=== PATIENT | female | born 1990 | race African-American/Black ===

== ENCOUNTER 2019-09-26 12:38 | Inpatient (IN) | payer MEDICAID, OTHER ==
[~2019-09-26] VITALS: Ht 157.5 cm; Wt 68.9 kg
[~2019-09-26 12:38] MED LIST: AMOX1TAB58 PO
[2019-09-26] MEDS ORDERED: IV NORMAL SALINE 1000ML BAG 1,000 ML IV SCH (12:42)
[2019-09-26] MEDS ORDERED: fentaNYL PF VIAL 100 MCG/2 ML VIAL IVP ONE (12:45)
--- NOTE | 2019-09-26 12:58 | PHYS DOC ---
Past Medical History Past Medical History: No Pertinent History Past Surgical History: Cholecystectomy, Smoking Status: Current Every Day Smoker Alcohol Use: Occasionally Drug Use: None General Adult EDM: Chief Complaint: ABDOMINAL PAIN HPI: HPI: Patient is a 28 year old female who presents with states epigastric abdominal pain 3 days that feels like " kicked in the stomach" with nausea and vomiting. She states that it will wrap around to her bilateral flanks. Patient denies dizziness, chest pain, shortness of air, syncope, dysuria, vaginal discharge, headache, fever, diarrhea. She states that she used to be a heavy drinker but for the last couple years she only drinks on special occasions. She states in the past that she has had "pancreas issues". She rates her pain a 9 out of 10. She has a history of UTI, smoker, alcoholism, cholecystectomy. Review of Systems: Review of Systems: Constitutional: Denies fever or chills. [] Eyes: Denies change in visual acuity. [] HENT: Denies nasal congestion or sore throat. [] Respiratory: Denies cough or shortness of breath. [] Cardiovascular: Denies chest pain or edema. [] GI: Epigastric abdominal pain, +nausea,+ vomiting, denies bloody stools or diarrhea. [] : Denies dysuria. [] Musculoskeletal: Bilateral flank back pain or joint pain. [] Integument: Denies rash. [] Neurologic: Denies headache, focal weakness or sensory changes. [] Endocrine: Denies polyuria or polydipsia. [] Lymphatic: Denies swollen glands. [] Psychiatric: Denies depression or anxiety. [] Heart Score: Risk Factors: Risk Factors: DM, Current or recent (<one month) smoker, HTN, HLP, family history of CAD, obesity. Risk Scores: Score 0 - 3: 2.5% MACE over next 6 weeks - Discharge Home Score 4 - 6: 20.3% MACE over next 6 weeks - Admit for Clinical Observation Score 7 - 10: 72.7% MACE over next 6 weeks - Early Invasive Strategies Current Medications: Current Medications Medications (Trade) Dose Ordered Sig/Marilyn Start Time Stop Time Status Last Admin Dose Admin Fentanyl Citrate (Fentanyl 2ml Vial) 50 mcg 1X ONCE 09/26/19 12:45 09/26/19 12:46 DC Sodium Chloride 1,000 ml @ 1,000 mls/hr Q1H 09/26/19 12:42 09/26/19 13:41 Allergies: Allergies: Allergies Coded Allergies Type Severity Reaction Last Updated Verified No Known Drug Allergies 06/22/17 No Physical Exam: PE: Constitutional: Well developed, well nourished, no acute distress, non-toxic appearance. [] HENT: Normocephalic, atraumatic, bilateral external ears normal, oropharynx moist, no oral exudates, nose normal. [] Eyes: PERRLA, EOMI, conjunctiva normal, no discharge. [] Neck: Normal range of motion, no tenderness, supple, no stridor. [] Cardiovascular:Heart rate regular rhythm, no murmur [] Lungs & Thorax: Bilateral breath sounds clear to auscultation [] Abdomen: Bowel sounds normal, soft, epigastric tenderness, no masses, no pulsatile masses. [] Skin: Warm, dry, no erythema, no rash. [] Back: No tenderness, no CVA tenderness. [] Extremities: No tenderness, no cyanosis, no clubbing, ROM intact, no edema. [] Neurologic: Alert and oriented X 3, normal motor function, normal sensory function, no focal deficits noted. [] Psychologic: Affect normal, judgement normal, mood normal. [] EKG: EKG: [] Radiology/Procedures: Radiology/Procedures: [] Impression: [facility] [address] [place], [place] [id number] IMAGING REPORT Signed PATIENT: JOSUE MICHEL MACCOUNT: [id number] : 1990 LOCATION: ER AGE: 28 SEX: F EXAM STATUS: REG ER ORD. PHYSICIAN: ALYSA SAMAYOA APRN REASON: abd pain PROCEDURE: CT ABD PELV W/ IV CONTRST ONLY Examination: CT of the abdomen pelvis with IV contrast HISTORY: History of abdominal pain COMPARISON: 06/22/2017 COMPARISON: None available TECHNIQUE: Axial CT images of the abdomen pelvis were performed with IV contrast and coronal sagittal reformats are performed Exposure: One or more of the following individualized dose reduction techniques were utilized for this examination: 1. Automated exposure control 2. Adjustment of the mA and/or kV according to patient size 3. Use of iterative reconstruction technique FINDINGS: The bibasilar lungs are clear. No evidence of free air identified in the abdomen. The liver, spleen, adrenals grossly appears unremarkable. Cholecystectomy clips identified. The stomach is mildly distended. The small bowel is nondilated. Feces and gas noted in the colon. Mild thickened appearance of the wall of the sigmoid colon. Urinary bladder is mildly distended. The bilateral kidneys enhance symmetrically. Punctate 2 mm calculus identified in the right kidney. Prominent appearing common bile duct. There is moderate fat stranding identified about the proximal pancreas with mild prominent pancreatic duct. No evidence of lytic or destructive lesion. IMPRESSION: 1. Moderate inflammatory fat stranding identified about the pancreas likely pancreatitis. Correlate with lab values. 2. Prominent appearing common bile duct and the pancreatic duct likely postcholecystectomy changes or distal common bile duct obstruction not completely excluded. Consider follow-up MRCP. 3. Mild thickened appearance of the wall of the sigmoid colon could be due to nondistention or mild colitis. 4. Punctate calculus right kidney. Electronically signed by: Silverio Milton MD (09/26/2019 2:00 PM) [id number] DICTATED and SIGNED BY: SILVERIO MILTON MD DATE: 09/26/191399 Course & Med Decision Making: Course & Med Decision Making Pertinent Labs and Imaging studies reviewed. (See chart for details) Patient states she took 2 Advil this morning. She states she got no relief from that. She is ambulatory with a steady gait. Alert and oriented. Speaks in full complete sentences. Skin pink warm and dry. Abdomen is soft but with epigastric tenderness with palpation. CVA tenderness bilaterally. Patient is positive for cocaine and opiates. She has a urinary tract infection with nitrites. I have given the patient Rocephin for her UTI in the ED. Patient continues to be in severe pain. I have spoken to Dr. Ruth for admission for pancreatitis. I will consult GI. [] Kvng Disclaimer: Kvng Disclaimer: This electronic medical record was generated, in whole or in part, using a voice recognition dictation system. Departure Departure Impression: Primary Impression: UTI (urinary tract infection) Qualified Codes: N39.0 - Urinary tract infection, site not specified; R31.9 - Hematuria, unspecified Additional Impression: Pancreatitis Qualified Codes: K85.90 - Acute pancreatitis without necrosis or infection, unspecified Disposition: 09 ADMITTED INPATIENT Admitting Physician: PARVEEN Condition: STABLE Referrals: NO PCP (PCP) Justicifation of Admission Dx: Justifications for Admission: Justification of Admission Dx: N/A Comments: UTI, PANCREATITIS ALYSA SAMAYOA HEALTH AND WELLNESS MANAGER Sep 26, 2019 12:57
[2019-09-26] MEDS ORDERED: ONDANSETRON PF 4 MG/2 ML VIAL. IVP ONE (13:00)
[2019-09-26 13:02] LABS: BILIRUBIN,URINE SMALL (NEG); CLARITY,URINE CLOUDY; COLOR,URINE AMBER; NITRITE,URINE POSITIVE (NEG); PROTEIN,URINE 100 mg/dL (NEG-TRACE)
[2019-09-26 13:08] LABS: BARBITURATES NEG (NEG); BENZODIAZEPINES NEG (NEG); CANNABINOIDS NEG (NEG); COCAINE POS (NEG); METHADONE NEG (NEG); OPIATES POS (NEG); PHENCYCLIDINE NEG (NEG)
[2019-09-26 13:09] LABS: AMPHETAMINE/METHAMPHETAMINE NEG (NEG)
[2019-09-26 13:10] LABS: HYALINE CASTS, URINE MODERATE /HPF; SQUAMOUS EPITHELIAL CELL,UR MOD /LPF
[2019-09-26 13:11] LABS: BACTERIA,URINE MANY /HPF (0-FEW); WBC,URINE >40 /HPF (0-4)
[2019-09-26] MEDS ORDERED: IOHEXOL 300 MG/ML 100ML VIAL. IV ONE (13:15)
[2019-09-26] MEDS ORDERED: CONTRAST GIVEN. MC PRN (13:15)
[2019-09-26 13:17] LABS: BASO # 0.1 x10^3/uL (0.0-0.2); BASO % 1 % (0-3); EOS # 0.2 x10^3/uL (0.0-0.7); EOS % 4 % (0-3); HEMATOCRIT 36.6 % (36.0-47.0); HEMOGLOBIN 12.7 g/dL (12.0-15.5); LYMPH # 1.1 x10^3/uL (1.0-4.8); LYMPH % 27 % (24-48); MEAN CORPUSCULAR HEMOGLOBIN 31 pg (25-35); MEAN CORPUSCULAR HGB CONC 35 g/dL (31-37); MEAN CORPUSCULAR VOLUME 88 fL (79-100); MONO # 0.5 x10^3/uL (0.0-1.1); MONO % 12 % (0-9); NEUT # 2.4 x10^3/uL (1.8-7.7); NEUT % 57 % (31-73); PLATELET COUNT 153 x10^3/uL (140-400); RED BLOOD COUNT 4.14 x10^6/uL (3.50-5.40); RED CELL DISTRIBUTION WIDTH 17.6 % (11.5-14.5); WHITE BLOOD COUNT 4.2 x10^3/uL (4.0-11.0)
[2019-09-26 13:25] LABS: CREATININE 1.6 mg/dL (0.6-1.0); GFR 45.8; POTASSIUM 3.1 mmol/L (3.5-5.1)
[2019-09-26 13:26] LABS: U PREG PATIENT NEGATIVE (NEG)
[2019-09-26 13:27] LABS: PROTHROMBIN TIME PATIENT 13.2 SEC (11.7-14.0)
[2019-09-26] MEDS ORDERED: cefTRIAXone IV Push 1 GM VIAL. IVP ONE (13:30)
[2019-09-26 13:31] LABS: ALBUMIN 4.5 g/dL (3.4-5.0); ALBUMIN/GLOBULIN RATIO 1.2 (1.0-1.7); TOTAL BILIRUBIN 1.2 mg/dL (0.2-1.0); TOTAL PROTEIN 8.4 g/dL (6.4-8.2)
--- NOTE | 2019-09-26 14:03 | RAD ---
Examination: CT of the abdomen pelvis with IV contrast HISTORY: History of abdominal pain COMPARISON: 06/22/2017 COMPARISON: None available TECHNIQUE: Axial CT images of the abdomen pelvis were performed with IV contrast and coronal sagittal reformats are performed Exposure: One or more of the following individualized dose reduction techniques were utilized for this examination: 1. Automated exposure control 2. Adjustment of the mA and/or kV according to patient size 3. Use of iterative reconstruction technique FINDINGS: The bibasilar lungs are clear. No evidence of free air identified in the abdomen. The liver, spleen, adrenals grossly appears unremarkable. Cholecystectomy clips identified. The stomach is mildly distended. The small bowel is nondilated. Feces and gas noted in the colon. Mild thickened appearance of the wall of the sigmoid colon. Urinary bladder is mildly distended. The bilateral kidneys enhance symmetrically. Punctate 2 mm calculus identified in the right kidney. Prominent appearing common bile duct. There is moderate fat stranding identified about the proximal pancreas with mild prominent pancreatic duct. No evidence of lytic or destructive lesion. IMPRESSION: 1. Moderate inflammatory fat stranding identified about the pancreas likely pancreatitis. Correlate with lab values. 2. Prominent appearing common bile duct and the pancreatic duct likely postcholecystectomy changes or distal common bile duct obstruction not completely excluded. Consider follow-up MRCP. 3. Mild thickened appearance of the wall of the sigmoid colon could be due to nondistention or mild colitis. 4. Punctate calculus right kidney. Electronically signed by: Silverio Milton MD (09/26/2019 2:00 PM) [id number]
[2019-09-26] MEDS ORDERED: IV NORMAL SALINE 1000ML BAG 1,000 ML IV ONE (14:15)
[2019-09-26] MEDS: fentaNYL PF VIAL 100 MCG/2 ML VIAL IV PRN ×3 (14:45→19:26)
[2019-09-26] MEDS ORDERED: ONDANSETRON PF 4 MG/2 ML VIAL. IV PRN ×2 (14:45→16:00)
--- NOTE | 2019-09-26 15:46 | PDOC1 ---
History and Physical Date of Admission Date of Admission DATE: 09/26/19 TIME: 15:45 Identification/Chief Complaint Chief Complaint 28 year old female who presents with states epigastric abdominal pain 3 days that feels like " kicked in the stomach" with nausea and vomiting. PAIN wraps around to her bilateral flanks. Patient denies dizziness, chest pain, shortness of air, syncope, dysuria, vaginal discharge, headache, fever, diarrhea. She states that she used to be a heavy drinker but now drinks a 1/2 bottle of wine a day She states in the past that she has had "pancreas issues". She rates her pain a 9 out of 10. She has a history of UTI, smoker, alcoholism, cholecystectomy. Past Medical History Past Medical History Past Medical History Past Medical History Past Medical History: No Pertinent History Past Surgical History: Cholecystectomy, Smoking Status: Current Every Day Smoker Alcohol Use: 1/2 bottle of wine a day Drug Use: cocaine FHX COPD Psych: Addictions Past Surgical History Past Surgical History: Cholecystectomy, Family History Family History: Alcohol Abuse, Other Social History Smoke: <1 pack per day ALCOHOL: heavy Drugs: None, Cocaine Current Problem List Problem List Problems Medical Problems: (1) Pancreatitis Status: Acute Current Medications Current Medications Current Medications Sodium Chloride 1,000 ml @ 1,000 mls/hr Q1H IV Last administered on 09/26/19at 13:29; Start 09/26/19 at 12:42; Stop 09/26/19 at 13:41; Status DC Fentanyl Citrate (Fentanyl 2ml Vial) 50 mcg 1X ONCE IVP Last administered on 09/26/19at 13:33; Start 09/26/19 at 12:45; Stop 09/26/19 at 12:46; Status DC Ondansetron HCl (Zofran) 4 mg 1X ONCE IVP Last administered on 09/26/19at 13:32; Start 09/26/19 at 13:00; Stop 09/26/19 at 13:01; Status DC Iohexol (Omnipaque 300 Mg/ml) 75 ml 1X ONCE IV Last administered on 09/26/19at 13:40; Start 09/26/19 at 13:15; Stop 09/26/19 at 13:16; Status DC Info (CONTRAST GIVEN -- Rx MONITORING) 1 each PRN DAILY PRN MC SEE COMMENTS; Start 09/26/19 at 13:15; Stop 09/28/19 at 13:14 Ceftriaxone Sodium (Rocephin) 1 gm 1X ONCE IVP Last administered on 09/26/19at 13:30; Start 09/26/19 at 13:30; Stop 09/26/19 at 13:31; Status DC Sodium Chloride 1,000 ml @ 1,000 mls/hr 1X ONCE IV Last administered on 09/26/19at 14:15; Start 09/26/19 at 14:15; Stop 09/26/19 at 15:14; Status DC Ondansetron HCl (Zofran) 4 mg PRN Q8HRS PRN IV NAUSEA/VOMITING; Start 09/26/19 at 14:45; Stop 09/27/19 at 14:44 Fentanyl Citrate (Fentanyl 2ml Vial) 50 mcg PRN Q1HR PRN IV PAIN Last administered on 09/26/19at 14:45; Start 09/26/19 at 14:45; Stop 09/27/19 at 14:44 Sodium Chloride 1,000 ml @ 150 mls/hr Q6H40M IV ; Start 09/26/19 at 14:34; Stop 09/27/19 at 14:33 Active Scripts Active Augmentin 500-125 Tablet (Amoxicillin/Potassium Clav) 1 Each Tablet 1 Tab PO BID 9 Days Allergies Allergies: Coded Allergies: No Known Drug Allergies (Unverified , 06/22/17) ROS Review of System Constitutional: Denies fever or chills. [] Eyes: Denies change in visual acuity. [] HENT: Denies nasal congestion or sore throat. [] Respiratory: Denies cough or shortness of breath. [] Cardiovascular: Denies chest pain or edema. [] GI: Epigastric abdominal pain, +nausea,+ vomiting, denies bloody stools or diarrhea. [] : Denies dysuria. [] Musculoskeletal: Bilateral flank back pain or joint pain. [] Integument: Denies rash. [] Neurologic: Denies headache, focal weakness or sensory changes. [] Endocrine: Denies polyuria or polydipsia. [] Lymphatic: Denies swollen glands. [] Psychiatric: Denies depression or anxiety. [] 14 PT ROS OTHERWISE NEG General: YES: Fatigue PSYCHOLOGICAL ROS: YES: Anxiety, Irritablity Eyes: No Blurry vision, No Decreased vision, No Double vision, No Dry eyes, No Excessive tearing, No Eye Pain, No Itchy Eyes, No Loss of vision, No Photophobia, No Scotomata, No Uses contacts, No Uses glasses, No Other ALLERGY AND IMMUNOLOGY: No: Hives, Insect Bite Sensitivity, Itchy/Watery Eyes, Nasal Congestion, Post Nasal Drip, Seasonal Allergies, Other Hematological and Lymphatic: No: Bleeding Problems, Blood Clots, Blood Transfusions, Brusing, Night Sweats, Pallor, Swollen Lymph Nodes, Other Respiratory: No: Cough, Hemoptysis, Orthopnea, Pleuritic Pain, Shortness of breath, SOB with excertion, Sputum Changes, Stridor, Tachypnea, Wheezing, Other Gastrointestinal: Yes Nausea, Yes Vomiting, Yes Abdominal Pain Musculoskeletal: No Gait Disturbance, No Joint Pain, No Joint Stiffness, No Joint Swelling, No Muscle Pain, No Muscular Weakness, No Pain In:, No Swelling In:, No Other Skin: No Dry Skin, No Eczema, No Hair Changes, No Lumps, No Mole Changes, No Mottling, No Nail Changes, No Pruritus, No Rash, No Skin Lesion Changes, No Other, No Acne Physical Exam Physical Exam Constitutional: Well developed, well nourished, no acute distress, non-toxic appearance. [] HENT: Normocephalic, atraumatic, bilateral external ears normal, oropharynx moist, no oral exudates, nose normal. [] Eyes: PERRLA, EOMI, conjunctiva normal, no discharge. [] Neck: Normal range of motion, no tenderness, supple, no stridor. [] Cardiovascular:Heart rate regular rhythm, no murmur [] Lungs & Thorax: Bilateral breath sounds clear to auscultation [] Abdomen: Bowel sounds normal, soft, epigastric tenderness, no masses, no pulsatile masses. [] Skin: Warm, dry, no erythema, no rash. [] Back: No tenderness, no CVA tenderness. [] Extremities: No tenderness, no cyanosis, no clubbing, ROM intact, no edema. [] Neurologic: Alert and oriented X 3, normal motor function, normal sensory function, no focal deficits noted. [] Psychologic: Affect normal, judgment POOR mood normal. [] General: Alert, Oriented X3, Cooperative, No acute distress HEENT: Atraumatic, PERRLA Lungs: Clear to auscultation Heart: S1S2, RRR Breasts: Not examined Abdomen: Normal bowel sounds, Soft Rectal Exam: not examined PELVIC: Examination not indicated Extremities: No cyanosis Skin: No breakdown Neuro: Normal speech, Cranial nerves 3-12 NL Vitals Vitals Vital Signs Date Time Temp Pulse Resp B/P (MAP) Pulse Ox O2 Delivery O2 Flow Rate FiO2 09/26/19 14:44 82 151/93 (112) 100 Room Air 09/26/19 13:00 97.8 16 97.8 Labs Labs Laboratory Tests Test 09/26/19 12:47 09/26/19 13:00 09/26/19 13:04 Urine Collection Type Unknown Urine Color Lydia Urine Clarity Cloudy Urine pH 6.0 (<5.0-8.0) Urine Specific [place] >=1.030 (1.000-1.030) Urine Protein 100 mg/dL (NEG-TRACE) Urine Glucose (UA) Negative mg/dL (NEG) Urine Ketones (Stick) Trace mg/dL (NEG) Urine Blood Trace (NEG) Urine Nitrite Positive (NEG) Urine Bilirubin Small (NEG) Urine Urobilinogen Dipstick 1.0 mg/dL (0.2 mg/dL) Urine Leukocyte Esterase Moderate (NEG) Urine RBC 3-5 /HPF (0-2) Urine WBC >40 /HPF (0-4) Urine Squamous Epithelial Cells Mod /LPF Urine Bacteria Many /HPF (0-FEW) Urine Hyaline Casts Moderate /HPF Urine Mucus Mod /LPF Urine Opiates Screen Pos (NEG) Urine Methadone Screen Neg (NEG) Urine Barbiturates Neg (NEG) Urine Phencyclidine Screen Neg (NEG) Urine Amphetamine/Methamphetamine Neg (NEG) Urine Benzodiazepines Screen Neg (NEG) Urine Cocaine Screen Pos (NEG) Urine Cannabinoids Screen Neg (NEG) Urine Ethyl Alcohol Neg (NEG) White Blood Count 4.2 x10^3/uL (4.0-11.0) Red Blood Count 4.14 x10^6/uL (3.50-5.40) Hemoglobin 12.7 g/dL (12.0-15.5) Hematocrit 36.6 % (36.0-47.0) Mean Corpuscular Volume 88 fL (79-100) Mean Corpuscular Hemoglobin 31 pg (25-35) Mean Corpuscular Hemoglobin Concent 35 g/dL (31-37) Red Cell Distribution Width 17.6 % (11.5-14.5) Platelet Count 153 x10^3/uL (140-400) Neutrophils (%) (Auto) 57 % (31-73) Lymphocytes (%) (Auto) 27 % (24-48) Monocytes (%) (Auto) 12 % (0-9) Eosinophils (%) (Auto) 4 % (0-3) Basophils (%) (Auto) 1 % (0-3) Neutrophils # (Auto) 2.4 x10^3/uL (1.8-7.7) Lymphocytes # (Auto) 1.1 x10^3/uL (1.0-4.8) Monocytes # (Auto) 0.5 x10^3/uL (0.0-1.1) Eosinophils # (Auto) 0.2 x10^3/uL (0.0-0.7) Basophils # (Auto) 0.1 x10^3/uL (0.0-0.2) Prothrombin Time 13.2 SEC (11.7-14.0) Prothromb Time International Ratio 1.0 (0.8-1.1) Sodium Level 136 mmol/L (136-145) Potassium Level 3.1 mmol/L (3.5-5.1) Chloride Level 100 mmol/L (98-107) Carbon Dioxide Level 23 mmol/L (21-32) Anion Gap 13 (6-14) Blood Urea Nitrogen 11 mg/dL (7-20) Creatinine 1.6 mg/dL (0.6-1.0) Estimated GFR (Cockcroft-Gault) 45.8 BUN/Creatinine Ratio 7 (6-20) Glucose Level 142 mg/dL (70-99) Calcium Level 9.0 mg/dL (8.5-10.1) Total Bilirubin 1.2 mg/dL (0.2-1.0) Aspartate Amino Transf (AST/SGOT) 34 U/L (15-37) Alanine Aminotransferase (ALT/SGPT) 23 U/L (14-59) Alkaline Phosphatase 87 U/L (46-116) Total Protein 8.4 g/dL (6.4-8.2) Albumin 4.5 g/dL (3.4-5.0) Albumin/Globulin Ratio 1.2 (1.0-1.7) Lipase 429 U/L (73-393) Ethyl Alcohol Level < 10 mg/dL (0-10) Urine Test Negative (NEG) Laboratory Tests Test 09/26/19 12:47 09/26/19 13:00 09/26/19 13:04 Urine Collection Type Unknown Urine Color Lydia Urine Clarity Cloudy Urine pH 6.0 (<5.0-8.0) Urine Specific [place] >=1.030 (1.000-1.030) Urine Protein 100 mg/dL (NEG-TRACE) Urine Glucose (UA) Negative mg/dL (NEG) Urine Ketones (Stick) Trace mg/dL (NEG) Urine Blood Trace (NEG) Urine Nitrite Positive (NEG) Urine Bilirubin Small (NEG) Urine Urobilinogen Dipstick 1.0 mg/dL (0.2 mg/dL) Urine Leukocyte Esterase Moderate (NEG) Urine RBC 3-5 /HPF (0-2) Urine WBC >40 /HPF (0-4) Urine Squamous Epithelial Cells Mod /LPF Urine Bacteria Many /HPF (0-FEW) Urine Hyaline Casts Moderate /HPF Urine Mucus Mod /LPF Urine Opiates Screen Pos (NEG) Urine Methadone Screen Neg (NEG) Urine Barbiturates Neg (NEG) Urine Phencyclidine Screen Neg (NEG) Urine Amphetamine/Methamphetamine Neg (NEG) Urine Benzodiazepines Screen Neg (NEG) Urine Cocaine Screen Pos (NEG) Urine Cannabinoids Screen Neg (NEG) Urine Ethyl Alcohol Neg (NEG) White Blood Count 4.2 x10^3/uL (4.0-11.0) Red Blood Count 4.14 x10^6/uL (3.50-5.40) Hemoglobin 12.7 g/dL (12.0-15.5) Hematocrit 36.6 % (36.0-47.0) Mean Corpuscular Volume 88 fL (79-100) Mean Corpuscular Hemoglobin 31 pg (25-35) Mean Corpuscular Hemoglobin Concent 35 g/dL (31-37) Red Cell Distribution Width 17.6 % (11.5-14.5) Platelet Count 153 x10^3/uL (140-400) Neutrophils (%) (Auto) 57 % (31-73) Lymphocytes (%) (Auto) 27 % (24-48) Monocytes (%) (Auto) 12 % (0-9) Eosinophils (%) (Auto) 4 % (0-3) Basophils (%) (Auto) 1 % (0-3) Neutrophils # (Auto) 2.4 x10^3/uL (1.8-7.7) Lymphocytes # (Auto) 1.1 x10^3/uL (1.0-4.8) Monocytes # (Auto) 0.5 x10^3/uL (0.0-1.1) Eosinophils # (Auto) 0.2 x10^3/uL (0.0-0.7) Basophils # (Auto) 0.1 x10^3/uL (0.0-0.2) Prothrombin Time 13.2 SEC (11.7-14.0) Prothromb Time International Ratio 1.0 (0.8-1.1) Sodium Level 136 mmol/L (136-145) Potassium Level 3.1 mmol/L (3.5-5.1) Chloride Level 100 mmol/L (98-107) Carbon Dioxide Level 23 mmol/L (21-32) Anion Gap 13 (6-14) Blood Urea Nitrogen 11 mg/dL (7-20) Creatinine 1.6 mg/dL (0.6-1.0) Estimated GFR (Cockcroft-Gault) 45.8 BUN/Creatinine Ratio 7 (6-20) Glucose Level 142 mg/dL (70-99) Calcium Level 9.0 mg/dL (8.5-10.1) Total Bilirubin 1.2 mg/dL (0.2-1.0) Aspartate Amino Transf (AST/SGOT) 34 U/L (15-37) Alanine Aminotransferase (ALT/SGPT) 23 U/L (14-59) Alkaline Phosphatase 87 U/L (46-116) Total Protein 8.4 g/dL (6.4-8.2) Albumin 4.5 g/dL (3.4-5.0) Albumin/Globulin Ratio 1.2 (1.0-1.7) Lipase 429 U/L (73-393) Ethyl Alcohol Level < 10 mg/dL (0-10) Urine Test Negative (NEG) Images Images PATIENT: JOSUE MICHEL MACCOUNT: [id number] : 1990 LOCATION: ER AGE: 28 SEX: F EXAM STATUS: REG ER ORD. PHYSICIAN: ALYSA SAMAYOA APRN REASON: abd pain PROCEDURE: CT ABD PELV W/ IV CONTRST ONLY Examination: CT of the abdomen pelvis with IV contrast HISTORY: History of abdominal pain COMPARISON: 06/22/2017 COMPARISON: None available TECHNIQUE: Axial CT images of the abdomen pelvis were performed with IV contrast and coronal sagittal reformats are performed Exposure: One or more of the following individualized dose reduction techniques were utilized for this examination: 1. Automated exposure control 2. Adjustment of the mA and/or kV according to patient size 3. Use of iterative reconstruction technique FINDINGS: The bibasilar lungs are clear. No evidence of free air identified in the abdomen. The liver, spleen, adrenals grossly appears unremarkable. Cholecystectomy clips identified. The stomach is mildly distended. The small bowel is nondilated. Feces and gas noted in the colon. Mild thickened appearance of the wall of the sigmoid colon. Urinary bladder is mildly distended. The bilateral kidneys enhance symmetrically. Punctate 2 mm calculus identified in the right kidney. Prominent appearing common bile duct. There is moderate fat stranding identified about the proximal pancreas with mild prominent pancreatic duct. No evidence of lytic or destructive lesion. IMPRESSION: 1. Moderate inflammatory fat stranding identified about the pancreas likely pancreatitis. Correlate with lab values. 2. Prominent appearing common bile duct and the pancreatic duct likely postcholecystectomy changes or distal common bile duct obstruction not completely excluded. Consider follow-up MRCP. 3. Mild thickened appearance of the wall of the sigmoid colon could be due to nondistention or mild colitis. 4. Punctate calculus right kidney. Electronically signed by: Silverio Milton MD (09/26/2019 2:00 PM) [id number] DICTATED and SIGNED BY: SILVERIO MILTON MD DATE: 09/26/19 1400 VTE Prophylaxis Ordered VTE Prophylaxis Devices: No VTE Pharmacological Prophylaxi: Yes Assessment/Plan Assessment/Plan IMPRESSION: 1, acute abdominal pain 2. ALCOHOL ABUSE 3. Moderate inflammatory fat stranding identified about the pancreas likely pancreatitis. 4. Prominent appearing common bile duct and the pancreatic duct likely postcholecystectomy changes or distal common bile duct obstruction not completely excluded. Consider follow-up MRCP. 5 . Mild thickened appearance of the wall of the sigmoid colon could be due to nondistention or mild colitis. 6. COCAINE ABUSE PLAN ADMIT IV FLUID SUPPORT GI CONSULT DVT prophylaxis CIWA PRECAUTIONS NPO IV PROTONIX D/W ER DR Khouryicifation of Admission Dx: Justifications for Admission: Justification of Admission Dx: N/A ARVIND CHAVIRA MD Sep 26, 2019 15:46
[2019-09-26] MEDS ORDERED: cloNIDine HCL 0.1 MG TABLET PO PRN ×2 (16:00→16:15)
[2019-09-26] MEDS ORDERED: guaiFENesin ORAL 200 MG/10 ML LIQUID. PO PRN (16:00)
[2019-09-26] MEDS ORDERED: SODIUM PHOSPHATES 19/7GM 133 ML ENEMA. PR PRN (16:00)
[2019-09-26] MEDS ORDERED: 0.9 % SODIUM CHLORIDE 10 ML DISP.SYRIN. IV PRN (16:00)
[2019-09-26] MEDS ORDERED: MULTIVIT INFUSN,ADULT 4,VIT K 10 ML, THIAMINE INJ 100 MG, FOLIC ACID INJ 1 MG in IV NOR... IV ONE (16:00)
[2019-09-26] MEDS ORDERED: ACETAMINOPHEN 325 MG TABLET. PO PRN (16:00)
[2019-09-26] MEDS ORDERED: DOCUSATE SODIUM 100 MG CAPSULE. PO PRN (16:00)
[2019-09-26] MEDS ORDERED: MAG HYDROX/ALUMINUM HYD/SIMETH 30 ML ORAL.SUSP PO PRN (16:00)
[2019-09-26] MEDS: IPRATRPIUM/ALBUTEROL 0.5/2.5MG 3 ML NEBU. NEB SCH ×2 (16:00→20:44)
[2019-09-26] MEDS: IV NORMAL SALINE 1000ML BAG 1,000 ML IV SCH ×2 (16:01→21:54)
[2019-09-26] MEDS ORDERED: DEXTROSE 50% 25 GM / 50ML DISP.SYRIN. IV PRN (16:15)
[2019-09-26] MEDS ORDERED: POTASSIUM CHLORIDE 20 MEQ TABLET.ER. PO ONE ×2 (16:15→18:15)
[2019-09-26] MEDS ORDERED: HALOPERIDOL LACTATE 5 MG/ML VIAL. IVP PRN (16:15)
[2019-09-26] MEDS ORDERED: diphenhydrAMINE 50 MG/ML VIAL IVP PRN (16:15)
[2019-09-26] MEDS: INSULIN LISPRO 300 UNITS/3 ML VIAL. SQ SCH (16:49)
[2019-09-26] MEDS: ENOXAPARIN 40 MG/0.4 ML SYRINGE. SQ SCH (17:02)
[2019-09-26] MEDS: LORazepam 0.5 MG TABLET PO PRN (17:02)
[2019-09-26] MEDS: PANTOPRAZOLE IV PUSH 40 MG VIAL. IVP SCH (17:03)
[2019-09-26] MEDS ORDERED: MULT-735 PO (19:38)
[2019-09-26] MEDS ORDERED: IBUP200T58 PO (19:38)
[2019-09-26] MEDS ORDERED: FERR-36 PO (19:38)
[2019-09-26 20:00] VITALS: BP 141/100
[2019-09-26] MEDS ORDERED: HYDROmorphone 2 MG/ML VIAL IV PRN (20:15)
[2019-09-26] MEDS ORDERED: ALBUTEROL SULFATE 2.5 MG/3 ML NEBU. NEB PRN (22:45)
[2019-09-26 23:00] VITALS: BP 104/76
[2019-09-26] MEDS ORDERED: HYDROmorphone 2 MG/ML VIAL IV ONE (23:00)
[2019-09-26] MEDS: HYDROmorphone 2 MG/ML VIAL IV PRN (23:47)
[2019-09-27 03:00] VITALS: BP 99/59
[2019-09-27] MEDS: HYDROmorphone 2 MG/ML VIAL IV PRN ×6 (03:09→23:55)
[2019-09-27] MEDS: IV NORMAL SALINE 1000ML BAG 1,000 ML IV SCH ×2 (03:09→10:34)
[2019-09-27 05:32] LABS: BASO % 1 % (0-3); EOS # 0.2 x10^3/uL (0.0-0.7); EOS % 4 % (0-3); HEMATOCRIT 27.8 % (36.0-47.0); HEMOGLOBIN 9.7 g/dL (12.0-15.5); LYMPH # 1.2 x10^3/uL (1.0-4.8); LYMPH % 32 % (24-48); MEAN CORPUSCULAR HEMOGLOBIN 31 pg (25-35); MEAN CORPUSCULAR HGB CONC 35 g/dL (31-37); MEAN CORPUSCULAR VOLUME 89 fL (79-100); MONO # 0.5 x10^3/uL (0.0-1.1); MONO % 12 % (0-9); NEUT # 1.9 x10^3/uL (1.8-7.7); NEUT % 51 % (31-73); PLATELET COUNT 114 x10^3/uL (140-400); RED BLOOD COUNT 3.11 x10^6/uL (3.50-5.40); RED CELL DISTRIBUTION WIDTH 17.5 % (11.5-14.5); WHITE BLOOD COUNT 3.8 x10^3/uL (4.0-11.0)
[2019-09-27 05:52] LABS: CALCIUM 7.3 mg/dL (8.5-10.1); CREATININE 0.9 mg/dL (0.6-1.0); POTASSIUM 3.6 mmol/L (3.5-5.1)
[2019-09-27 05:58] LABS: ALBUMIN 3.1 g/dL (3.4-5.0); TOTAL BILIRUBIN 0.5 mg/dL (0.2-1.0); TOTAL PROTEIN 6.1 g/dL (6.4-8.2)
[2019-09-27 07:00] VITALS: BP 106/75
[2019-09-27] MEDS: INSULIN LISPRO 300 UNITS/3 ML VIAL. SQ SCH ×3 (08:00→17:00)
[2019-09-27] MEDS: PANTOPRAZOLE IV PUSH 40 MG VIAL. IVP SCH (08:19)
[2019-09-27] MEDS: MULTIVIT INFUSN,ADULT 4,VIT K 10 ML, THIAMINE INJ 100 MG, FOLIC ACID INJ 1 MG in IV NOR... IV SCH (08:21)
--- NOTE | 2019-09-27 09:20 | PDOC2 ---
GI CONSULT Reason For Consult: pancreatitis HPI: HPI: 28 y/o female w/ 3 days of upper abd and back pain. Similar to past episodes of pancreatitis. Hospitalized once before for this, but has episodes of pain. Pancreatitis is caused by "anything." Not forthcoming with information. Denies reflux/heartburn, diarrhea, constipation, bleeding, and weight loss. Thinks had a previous EGD, not sure where or when. No previous colonoscopy. S/p cholecystectomy for stones. Denies liver history. PRN NSAIDs. Takes iron. Labs note +cocaine, possible UTI, Hgb 9.7, plt 114, WBC 3.8, lipase [address] w/ pancreatitis and prominent PD and CBD s/p cholecystectomy, also possible sigmoid colitis. PMH: PMH: pancreatitis, substance abuse, nephrolithiasis cholecystectomy, FH: Family History: No pertinent hx (denies GI cancers, pancreatitis) Social History: Smoke: <1 pack per day ALCOHOL: other (heavy in the past, now "a half or 2-3 glasses of wine" 3x weekly) Drugs: Cocaine (she denies) ROS: GEN: Denies fevers, chills, sweats HEENT: Denies blurred vision, sore throat CV: Denies chest pain RESP: Denies shortness of air, cough GI: Per HPI : Denies hematuria, dysuria ENDO: Denies weight changes NEURO: Denies confusion, dizziness MSK: Denies weakness, joint pain/swelling SKIN: Denies jaundice, pruritus Vitals: Vitals: Vital Signs Date Time Temp Pulse Resp B/P (MAP) Pulse Ox O2 Delivery O2 Flow Rate FiO2 09/27/19 08:19 Room Air 09/27/19 07:00 97.3 69 19 106/75 (85) 99 97.3 Labs: Labs: Laboratory Tests Test 09/26/19 12:47 09/26/19 13:00 09/26/19 13:04 09/26/19 14:45 Urine Collection Type Unknown Urine Color Lydia Urine Clarity Cloudy Urine pH 6.0 (<5.0-8.0) Urine Specific Shelby >=1.030 (1.000-1.030) Urine Protein 100 mg/dL (NEG-TRACE) Urine Glucose (UA) Negative mg/dL (NEG) Urine Ketones (Stick) Trace mg/dL (NEG) Urine Blood Trace (NEG) Urine Nitrite Positive (NEG) Urine Bilirubin Small (NEG) Urine Urobilinogen Dipstick 1.0 mg/dL (0.2 mg/dL) Urine Leukocyte Esterase Moderate (NEG) Urine RBC 3-5 /HPF (0-2) Urine WBC >40 /HPF (0-4) Urine Squamous Epithelial Cells Mod /LPF Urine Bacteria Many /HPF (0-FEW) Urine Hyaline Casts Moderate /HPF Urine Mucus Mod /LPF Urine Opiates Screen Pos (NEG) Urine Methadone Screen Neg (NEG) Urine Barbiturates Neg (NEG) Urine Phencyclidine Screen Neg (NEG) Urine Amphetamine/Methamphetamine Neg (NEG) Urine Benzodiazepines Screen Neg (NEG) Urine Cocaine Screen Pos (NEG) Urine Cannabinoids Screen Neg (NEG) Urine Ethyl Alcohol Neg (NEG) White Blood Count 4.2 x10^3/uL (4.0-11.0) Red Blood Count 4.14 x10^6/uL (3.50-5.40) Hemoglobin 12.7 g/dL (12.0-15.5) Hematocrit 36.6 % (36.0-47.0) Mean Corpuscular Volume 88 fL (79-100) Mean Corpuscular Hemoglobin 31 pg (25-35) Mean Corpuscular Hemoglobin Concent 35 g/dL (31-37) Red Cell Distribution Width 17.6 % (11.5-14.5) Platelet Count 153 x10^3/uL (140-400) Neutrophils (%) (Auto) 57 % (31-73) Lymphocytes (%) (Auto) 27 % (24-48) Monocytes (%) (Auto) 12 % (0-9) Eosinophils (%) (Auto) 4 % (0-3) Basophils (%) (Auto) 1 % (0-3) Neutrophils # (Auto) 2.4 x10^3/uL (1.8-7.7) Lymphocytes # (Auto) 1.1 x10^3/uL (1.0-4.8) Monocytes # (Auto) 0.5 x10^3/uL (0.0-1.1) Eosinophils # (Auto) 0.2 x10^3/uL (0.0-0.7) Basophils # (Auto) 0.1 x10^3/uL (0.0-0.2) Prothrombin Time 13.2 SEC (11.7-14.0) Prothromb Time International Ratio 1.0 (0.8-1.1) Sodium Level 136 mmol/L (136-145) Potassium Level 3.1 mmol/L (3.5-5.1) Chloride Level 100 mmol/L (98-107) Carbon Dioxide Level 23 mmol/L (21-32) Anion Gap 13 (6-14) Blood Urea Nitrogen 11 mg/dL (7-20) Creatinine 1.6 mg/dL (0.6-1.0) Estimated GFR (Cockcroft-Gault) 45.8 BUN/Creatinine Ratio 7 (6-20) Glucose Level 142 mg/dL (70-99) Calcium Level 9.0 mg/dL (8.5-10.1) Total Bilirubin 1.2 mg/dL (0.2-1.0) Aspartate Amino Transf (AST/SGOT) 34 U/L (15-37) Alanine Aminotransferase (ALT/SGPT) 23 U/L (14-59) Alkaline Phosphatase 87 U/L (46-116) Total Protein 8.4 g/dL (6.4-8.2) Albumin 4.5 g/dL (3.4-5.0) Albumin/Globulin Ratio 1.2 (1.0-1.7) Lipase 429 U/L (73-393) Ethyl Alcohol Level < 10 mg/dL (0-10) Urine Test Negative (NEG) Coronavirus (COVID-19)(PCR) Negative (NEGATIVE) Test 09/26/19 23:07 09/27/19 04:52 Glucose (Fingerstick) 120 mg/dL (70-99) White Blood Count 3.8 x10^3/uL (4.0-11.0) Red Blood Count 3.11 x10^6/uL (3.50-5.40) Hemoglobin 9.7 g/dL (12.0-15.5) Hematocrit 27.8 % (36.0-47.0) Mean Corpuscular Volume 89 fL (79-100) Mean Corpuscular Hemoglobin 31 pg (25-35) Mean Corpuscular Hemoglobin Concent 35 g/dL (31-37) Red Cell Distribution Width 17.5 % (11.5-14.5) Platelet Count 114 x10^3/uL (140-400) Neutrophils (%) (Auto) 51 % (31-73) Lymphocytes (%) (Auto) 32 % (24-48) Monocytes (%) (Auto) 12 % (0-9) Eosinophils (%) (Auto) 4 % (0-3) Basophils (%) (Auto) 1 % (0-3) Neutrophils # (Auto) 1.9 x10^3/uL (1.8-7.7) Lymphocytes # (Auto) 1.2 x10^3/uL (1.0-4.8) Monocytes # (Auto) 0.5 x10^3/uL (0.0-1.1) Eosinophils # (Auto) 0.2 x10^3/uL (0.0-0.7) Basophils # (Auto) 0.0 x10^3/uL (0.0-0.2) Sodium Level 142 mmol/L (136-145) Potassium Level 3.6 mmol/L (3.5-5.1) Chloride Level 111 mmol/L (98-107) Carbon Dioxide Level 23 mmol/L (21-32) Anion Gap 8 (6-14) Blood Urea Nitrogen 8 mg/dL (7-20) Creatinine 0.9 mg/dL (0.6-1.0) Estimated GFR (Cockcroft-Gault) 89.0 BUN/Creatinine Ratio 9 (6-20) Glucose Level 101 mg/dL (70-99) Calcium Level 7.3 mg/dL (8.5-10.1) Total Bilirubin 0.5 mg/dL (0.2-1.0) Aspartate Amino Transf (AST/SGOT) 24 U/L (15-37) Alanine Aminotransferase (ALT/SGPT) 16 U/L (14-59) Alkaline Phosphatase 60 U/L (46-116) Total Protein 6.1 g/dL (6.4-8.2) Albumin 3.1 g/dL (3.4-5.0) Albumin/Globulin Ratio 1.0 (1.0-1.7) Lipase 250 U/L (73-393) Allergies: Coded Allergies: aspirin (Verified Allergy, Intermediate, 09/26/19) itching, hives Medications: Current Medications Medications (Trade) Dose Ordered Sig/Marilyn Route PRN Reason Start Time Stop Time Status Last Admin Dose Admin Sodium Chloride 1,000 ml @ 1,000 mls/hr Q1H IV 09/26/19 12:42 09/26/19 13:41 DC 09/26/19 13:29 Fentanyl Citrate (Fentanyl 2ml Vial) 50 mcg 1X ONCE IVP 09/26/19 12:45 09/26/19 12:46 DC 09/26/19 13:33 Ondansetron HCl (Zofran) 4 mg 1X ONCE IVP 09/26/19 13:00 09/26/19 13:01 DC 09/26/19 13:32 Iohexol (Omnipaque 300 Mg/ml) 75 ml 1X ONCE IV 09/26/19 13:15 09/26/19 13:16 DC 09/26/19 13:40 Ceftriaxone Sodium (Rocephin) 1 gm 1X ONCE IVP 09/26/19 13:30 09/26/19 13:31 DC 09/26/19 13:30 Sodium Chloride 1,000 ml @ 1,000 mls/hr 1X ONCE IV 09/26/19 14:15 09/26/19 15:14 DC 09/26/19 14:15 Fentanyl Citrate (Fentanyl 2ml Vial) 50 mcg PRN Q1HR PRN IV PAIN 09/26/19 14:45 09/26/19 20:13 DC 09/26/19 19:26 Sodium Chloride 1,000 ml @ 150 mls/hr Q6H40M IV 09/26/19 14:34 09/27/19 14:33 09/27/19 03:09 Multivitamins 10 ml/Thiamine HCl 100 mg/Folic Acid 1 mg/Sodium Chloride 1,011.2 ml @ 125 mls/ hr 1X ONCE IV 09/26/19 16:00 09/27/19 00:05 DC 09/26/19 17:16 Albuterol/ Ipratropium (Duoneb) 3 ml Q4HRS NEB 09/26/19 16:00 09/26/19 22:30 DC 09/26/19 20:44 Lorazepam (Ativan) 0.5 mg PRN Q4HRS PRN PO ANXIETY / AGITATION 09/26/19 16:00 09/26/19 17:02 Lorazepam (Ativan Inj) 2 mg PRN Q4HRS PRN IV ANXIETY / AGITATION 09/26/19 16:00 09/26/19 23:06 Enoxaparin Sodium (Lovenox 40mg Syringe) 40 mg Q24H SQ 09/26/19 16:00 09/26/19 17:02 Multivitamins 10 ml/Thiamine HCl 100 mg/Folic Acid 1 mg/Sodium Chloride 1,011.2 ml @ 100 mls/ hr DAILY IV 09/27/19 09:00 09/30/19 19:07 09/27/19 08:21 Potassium Chloride (Klor-Con) 40 meq 1X ONCE PO 09/26/19 16:15 09/26/19 16:23 DC 09/26/19 17:03 Potassium Chloride (Klor-Con) 20 meq 1X ONCE PO 09/26/19 18:15 09/26/19 18:16 DC 09/26/19 19:02 Pantoprazole Sodium (PROTONIX VIAL for IV PUSH) 40 mg DAILY08 IVP 09/26/19 16:30 09/27/19 08:19 Hydromorphone HCl (Dilaudid) 1 mg PRN Q3HRS PRN IV PAIN 09/26/19 20:15 09/26/19 22:46 DC 09/26/19 20:40 Hydromorphone HCl (Dilaudid) 1.5 mg PRN Q3HRS PRN IV SEVERE PAIN 7-10 09/26/19 22:45 09/27/19 08:19 Hydromorphone HCl (Dilaudid) 0.5 mg 1X ONCE IV 09/26/19 23:00 09/26/19 23:01 DC 09/26/19 22:59 Imaging: Imaging: CT A/P IMPRESSION: 1. Moderate inflammatory fat stranding identified about the pancreas likely pancreatitis. Correlate with lab values. 2. Prominent appearing common bile duct and the pancreatic duct likely postcholecystectomy changes or distal common bile duct obstruction not completely excluded. Consider follow-up MRCP. 3. Mild thickened appearance of the wall of the sigmoid colon could be dueto nondistention or mild colitis. 4. Punctate calculus right kidney. PE: GEN: NAD HEENT: Atraumatic, PERRL LUNGS: CTAB HEART: RRR ABD: quiet, soft, epigastric/LUQ tenderness EXTREMITY: No edema SKIN: No rashes, no jaundice NEURO/PSYCH: A & O 3, flat, seems annoyed A/P: A/P: Pancreatitis - lipase not impressive, but noted on CT - pain similar to past episodes Pancytopenia, ?UTI (cx pending), +cocaine CRC screen - average risk S/p cholecystectomy COVID-19 negative -- Try clears, ADAT. Change to PO PPI. Check anemia parameters for completeness. Outpt MRCP re: prominent CBD and PD. Unclear significance of possible "colitis" on CT w/o diarrhea, bleeding, etc. ALICIA EVANS Sep 27, 2019 09:20
--- NOTE | 2019-09-27 09:27 | PDOC ---
PROGRESS NOTES Chief Complaint Chief Complaint Acute abdominal pain ALCOHOL ABUSE Moderate inflammatory fat stranding identified about the pancreas likely pancreatitis. Prominent appearing common bile duct and the pancreatic duct likely postcholecystectomy changes or distal common bile duct obstruction not completely excluded. Consider follow-up MRCP. Mild thickened appearance of the wall of the sigmoid colon could be due to nondistention or mild colitis COCAINE ABUSE History of Present Illness History of Present Illness Ms Schmidt is a 28 year old female who presents with states epigastric abdominal pain 3 days that feels like " kicked in the stomach" with nausea and vomiting. PAIN wraps around to her bilateral flanks. Patient denies dizziness, chest pain, shortness of air, syncope, dysuria, vagin al discharge, headache, fever, diarrhea. She states that she used to be a heavy drinker but now drinks a 1/2 bottle of wine a day. She states in the past that she has had "pancreas issues". She rates her pain a 9 out of 10. She stopped eating on 09/24/2019 when she realized she was probably having pancreatitis. Is asking for food today. Afebrile. Lipase normalized. Still with moderate 6 out of 10 abdominal pain radiating into the back. Plan: ADAT if ok with GI Vitals Vitals Vital Signs Date Time Temp Pulse Resp B/P (MAP) Pulse Ox O2 Delivery O2 Flow Rate FiO2 09/27/19 08:19 Room Air 09/27/19 07:00 97.3 69 19 106/75 (85) 99 97.3 Physical Exam General: Alert, Oriented X3, Cooperative, No acute distress Lungs: Clear Abdomen: Normal bowel sounds, Soft Extremities: No cyanosis Skin: No breakdown Labs LABS Laboratory Tests Test 09/26/19 12:47 09/26/19 13:00 09/26/19 13:04 09/26/19 14:45 Urine Collection Type Unknown Urine Color Lydia Urine Clarity Cloudy Urine pH 6.0 (<5.0-8.0) Urine Specific [place] >=1.030 (1.000-1.030) Urine Protein 100 mg/dL (NEG-TRACE) Urine Glucose (UA) Negative mg/dL (NEG) Urine Ketones (Stick) Trace mg/dL (NEG) Urine Blood Trace (NEG) Urine Nitrite Positive (NEG) Urine Bilirubin Small (NEG) Urine Urobilinogen Dipstick 1.0 mg/dL (0.2 mg/dL) Urine Leukocyte Esterase Moderate (NEG) Urine RBC 3-5 /HPF (0-2) Urine WBC >40 /HPF (0-4) Urine Squamous Epithelial Cells Mod /LPF Urine Bacteria Many /HPF (0-FEW) Urine Hyaline Casts Moderate /HPF Urine Mucus Mod /LPF Urine Opiates Screen Pos (NEG) Urine Methadone Screen Neg (NEG) Urine Barbiturates Neg (NEG) Urine Phencyclidine Screen Neg (NEG) Urine Amphetamine/Methamphetamine Neg (NEG) Urine Benzodiazepines Screen Neg (NEG) Urine Cocaine Screen Pos (NEG) Urine Cannabinoids Screen Neg (NEG) Urine Ethyl Alcohol Neg (NEG) White Blood Count 4.2 x10^3/uL (4.0-11.0) Red Blood Count 4.14 x10^6/uL (3.50-5.40) Hemoglobin 12.7 g/dL (12.0-15.5) Hematocrit 36.6 % (36.0-47.0) Mean Corpuscular Volume 88 fL (79-100) Mean Corpuscular Hemoglobin 31 pg (25-35) Mean Corpuscular Hemoglobin Concent 35 g/dL (31-37) Red Cell Distribution Width 17.6 % (11.5-14.5) Platelet Count 153 x10^3/uL (140-400) Neutrophils (%) (Auto) 57 % (31-73) Lymphocytes (%) (Auto) 27 % (24-48) Monocytes (%) (Auto) 12 % (0-9) Eosinophils (%) (Auto) 4 % (0-3) Basophils (%) (Auto) 1 % (0-3) Neutrophils # (Auto) 2.4 x10^3/uL (1.8-7.7) Lymphocytes # (Auto) 1.1 x10^3/uL (1.0-4.8) Monocytes # (Auto) 0.5 x10^3/uL (0.0-1.1) Eosinophils # (Auto) 0.2 x10^3/uL (0.0-0.7) Basophils # (Auto) 0.1 x10^3/uL (0.0-0.2) Prothrombin Time 13.2 SEC (11.7-14.0) Prothromb Time International Ratio 1.0 (0.8-1.1) Sodium Level 136 mmol/L (136-145) Potassium Level 3.1 mmol/L (3.5-5.1) Chloride Level 100 mmol/L (98-107) Carbon Dioxide Level 23 mmol/L (21-32) Anion Gap 13 (6-14) Blood Urea Nitrogen 11 mg/dL (7-20) Creatinine 1.6 mg/dL (0.6-1.0) Estimated GFR (Cockcroft-Gault) 45.8 BUN/Creatinine Ratio 7 (6-20) Glucose Level 142 mg/dL (70-99) Calcium Level 9.0 mg/dL (8.5-10.1) Total Bilirubin 1.2 mg/dL (0.2-1.0) Aspartate Amino Transf (AST/SGOT) 34 U/L (15-37) Alanine Aminotransferase (ALT/SGPT) 23 U/L (14-59) Alkaline Phosphatase 87 U/L (46-116) Total Protein 8.4 g/dL (6.4-8.2) Albumin 4.5 g/dL (3.4-5.0) Albumin/Globulin Ratio 1.2 (1.0-1.7) Lipase 429 U/L (73-393) Ethyl Alcohol Level < 10 mg/dL (0-10) Urine Test Negative (NEG) Coronavirus (COVID-19)(PCR) Negative (NEGATIVE) Test 09/26/19 23:07 09/27/19 04:52 Glucose (Fingerstick) 120 mg/dL (70-99) White Blood Count 3.8 x10^3/uL (4.0-11.0) Red Blood Count 3.11 x10^6/uL (3.50-5.40) Hemoglobin 9.7 g/dL (12.0-15.5) Hematocrit 27.8 % (36.0-47.0) Mean Corpuscular Volume 89 fL (79-100) Mean Corpuscular Hemoglobin 31 pg (25-35) Mean Corpuscular Hemoglobin Concent 35 g/dL (31-37) Red Cell Distribution Width 17.5 % (11.5-14.5) Platelet Count 114 x10^3/uL (140-400) Neutrophils (%) (Auto) 51 % (31-73) Lymphocytes (%) (Auto) 32 % (24-48) Monocytes (%) (Auto) 12 % (0-9) Eosinophils (%) (Auto) 4 % (0-3) Basophils (%) (Auto) 1 % (0-3) Neutrophils # (Auto) 1.9 x10^3/uL (1.8-7.7) Lymphocytes # (Auto) 1.2 x10^3/uL (1.0-4.8) Monocytes # (Auto) 0.5 x10^3/uL (0.0-1.1) Eosinophils # (Auto) 0.2 x10^3/uL (0.0-0.7) Basophils # (Auto) 0.0 x10^3/uL (0.0-0.2) Sodium Level 142 mmol/L (136-145) Potassium Level 3.6 mmol/L (3.5-5.1) Chloride Level 111 mmol/L (98-107) Carbon Dioxide Level 23 mmol/L (21-32) Anion Gap 8 (6-14) Blood Urea Nitrogen 8 mg/dL (7-20) Creatinine 0.9 mg/dL (0.6-1.0) Estimated GFR (Cockcroft-Gault) 89.0 BUN/Creatinine Ratio 9 (6-20) Glucose Level 101 mg/dL (70-99) Calcium Level 7.3 mg/dL (8.5-10.1) Total Bilirubin 0.5 mg/dL (0.2-1.0) Aspartate Amino Transf (AST/SGOT) 24 U/L (15-37) Alanine Aminotransferase (ALT/SGPT) 16 U/L (14-59) Alkaline Phosphatase 60 U/L (46-116) Total Protein 6.1 g/dL (6.4-8.2) Albumin 3.1 g/dL (3.4-5.0) Albumin/Globulin Ratio 1.0 (1.0-1.7) Lipase 250 U/L (73-393) Assessment and Plan Assessmemt and Plan Problems Medical Problems: (1) Pancreatitis Status: Acute Comment Review of Relevant I have reviewed the following items toan (where applicable) has been applied. Labs Laboratory Tests Test 09/26/19 12:47 09/26/19 13:00 09/26/19 13:04 09/26/19 14:45 Urine Collection Type Unknown Urine Color Lydia Urine Clarity Cloudy Urine pH 6.0 (<5.0-8.0) Urine Specific [place] >=1.030 (1.000-1.030) Urine Protein 100 mg/dL (NEG-TRACE) Urine Glucose (UA) Negative mg/dL (NEG) Urine Ketones (Stick) Trace mg/dL (NEG) Urine Blood Trace (NEG) Urine Nitrite Positive (NEG) Urine Bilirubin Small (NEG) Urine Urobilinogen Dipstick 1.0 mg/dL (0.2 mg/dL) Urine Leukocyte Esterase Moderate (NEG) Urine RBC 3-5 /HPF (0-2) Urine WBC >40 /HPF (0-4) Urine Squamous Epithelial Cells Mod /LPF Urine Bacteria Many /HPF (0-FEW) Urine Hyaline Casts Moderate /HPF Urine Mucus Mod /LPF Urine Opiates Screen Pos (NEG) Urine Methadone Screen Neg (NEG) Urine Barbiturates Neg (NEG) Urine Phencyclidine Screen Neg (NEG) Urine Amphetamine/Methamphetamine Neg (NEG) Urine Benzodiazepines Screen Neg (NEG) Urine Cocaine Screen Pos (NEG) Urine Cannabinoids Screen Neg (NEG) Urine Ethyl Alcohol Neg (NEG) White Blood Count 4.2 x10^3/uL (4.0-11.0) Red Blood Count 4.14 x10^6/uL (3.50-5.40) Hemoglobin 12.7 g/dL (12.0-15.5) Hematocrit 36.6 % (36.0-47.0) Mean Corpuscular Volume 88 fL (79-100) Mean Corpuscular Hemoglobin 31 pg (25-35) Mean Corpuscular Hemoglobin Concent 35 g/dL (31-37) Red Cell Distribution Width 17.6 % (11.5-14.5) Platelet Count 153 x10^3/uL (140-400) Neutrophils (%) (Auto) 57 % (31-73) Lymphocytes (%) (Auto) 27 % (24-48) Monocytes (%) (Auto) 12 % (0-9) Eosinophils (%) (Auto) 4 % (0-3) Basophils (%) (Auto) 1 % (0-3) Neutrophils # (Auto) 2.4 x10^3/uL (1.8-7.7) Lymphocytes # (Auto) 1.1 x10^3/uL (1.0-4.8) Monocytes # (Auto) 0.5 x10^3/uL (0.0-1.1) Eosinophils # (Auto) 0.2 x10^3/uL (0.0-0.7) Basophils # (Auto) 0.1 x10^3/uL (0.0-0.2) Prothrombin Time 13.2 SEC (11.7-14.0) Prothromb Time International Ratio 1.0 (0.8-1.1) Sodium Level 136 mmol/L (136-145) Potassium Level 3.1 mmol/L (3.5-5.1) Chloride Level 100 mmol/L (98-107) Carbon Dioxide Level 23 mmol/L (21-32) Anion Gap 13 (6-14) Blood Urea Nitrogen 11 mg/dL (7-20) Creatinine 1.6 mg/dL (0.6-1.0) Estimated GFR (Cockcroft-Gault) 45.8 BUN/Creatinine Ratio 7 (6-20) Glucose Level 142 mg/dL (70-99) Calcium Level 9.0 mg/dL (8.5-10.1) Total Bilirubin 1.2 mg/dL (0.2-1.0) Aspartate Amino Transf (AST/SGOT) 34 U/L (15-37) Alanine Aminotransferase (ALT/SGPT) 23 U/L (14-59) Alkaline Phosphatase 87 U/L (46-116) Total Protein 8.4 g/dL (6.4-8.2) Albumin 4.5 g/dL (3.4-5.0) Albumin/Globulin Ratio 1.2 (1.0-1.7) Lipase 429 U/L (73-393) Ethyl Alcohol Level < 10 mg/dL (0-10) Urine Test Negative (NEG) Coronavirus (COVID-19)(PCR) Negative (NEGATIVE) Test 09/26/19 23:07 09/27/19 04:52 Glucose (Fingerstick) 120 mg/dL (70-99) White Blood Count 3.8 x10^3/uL (4.0-11.0) Red Blood Count 3.11 x10^6/uL (3.50-5.40) Hemoglobin 9.7 g/dL (12.0-15.5) Hematocrit 27.8 % (36.0-47.0) Mean Corpuscular Volume 89 fL (79-100) Mean Corpuscular Hemoglobin 31 pg (25-35) Mean Corpuscular Hemoglobin Concent 35 g/dL (31-37) Red Cell Distribution Width 17.5 % (11.5-14.5) Platelet Count 114 x10^3/uL (140-400) Neutrophils (%) (Auto) 51 % (31-73) Lymphocytes (%) (Auto) 32 % (24-48) Monocytes (%) (Auto) 12 % (0-9) Eosinophils (%) (Auto) 4 % (0-3) Basophils (%) (Auto) 1 % (0-3) Neutrophils # (Auto) 1.9 x10^3/uL (1.8-7.7) Lymphocytes # (Auto) 1.2 x10^3/uL (1.0-4.8) Monocytes # (Auto) 0.5 x10^3/uL (0.0-1.1) Eosinophils # (Auto) 0.2 x10^3/uL (0.0-0.7) Basophils # (Auto) 0.0 x10^3/uL (0.0-0.2) Sodium Level 142 mmol/L (136-145) Potassium Level 3.6 mmol/L (3.5-5.1) Chloride Level 111 mmol/L (98-107) Carbon Dioxide Level 23 mmol/L (21-32) Anion Gap 8 (6-14) Blood Urea Nitrogen 8 mg/dL (7-20) Creatinine 0.9 mg/dL (0.6-1.0) Estimated GFR (Cockcroft-Gault) 89.0 BUN/Creatinine Ratio 9 (6-20) Glucose Level 101 mg/dL (70-99) Calcium Level 7.3 mg/dL (8.5-10.1) Total Bilirubin 0.5 mg/dL (0.2-1.0) Aspartate Amino Transf (AST/SGOT) 24 U/L (15-37) Alanine Aminotransferase (ALT/SGPT) 16 U/L (14-59) Alkaline Phosphatase 60 U/L (46-116) Total Protein 6.1 g/dL (6.4-8.2) Albumin 3.1 g/dL (3.4-5.0) Albumin/Globulin Ratio 1.0 (1.0-1.7) Lipase 250 U/L (73-393) Laboratory Tests Test 09/26/19 12:47 09/26/19 13:00 09/26/19 13:04 09/26/19 14:45 Urine Collection Type Unknown Urine Color Lydia Urine Clarity Cloudy Urine pH 6.0 (<5.0-8.0) Urine Specific [place] >=1.030 (1.000-1.030) Urine Protein 100 mg/dL (NEG-TRACE) Urine Glucose (UA) Negative mg/dL (NEG) Urine Ketones (Stick) Trace mg/dL (NEG) Urine Blood Trace (NEG) Urine Nitrite Positive (NEG) Urine Bilirubin Small (NEG) Urine Urobilinogen Dipstick 1.0 mg/dL (0.2 mg/dL) Urine Leukocyte Esterase Moderate (NEG) Urine RBC 3-5 /HPF (0-2) Urine WBC >40 /HPF (0-4) Urine Squamous Epithelial Cells Mod /LPF Urine Bacteria Many /HPF (0-FEW) Urine Hyaline Casts Moderate /HPF Urine Mucus Mod /LPF Urine Opiates Screen Pos (NEG) Urine Methadone Screen Neg (NEG) Urine Barbiturates Neg (NEG) Urine Phencyclidine Screen Neg (NEG) Urine Amphetamine/Methamphetamine Neg (NEG) Urine Benzodiazepines Screen Neg (NEG) Urine Cocaine Screen Pos (NEG) Urine Cannabinoids Screen Neg (NEG) Urine Ethyl Alcohol Neg (NEG) White Blood Count 4.2 x10^3/uL (4.0-11.0) Red Blood Count 4.14 x10^6/uL (3.50-5.40) Hemoglobin 12.7 g/dL (12.0-15.5) Hematocrit 36.6 % (36.0-47.0) Mean Corpuscular Volume 88 fL (79-100) Mean Corpuscular Hemoglobin 31 pg (25-35) Mean Corpuscular Hemoglobin Concent 35 g/dL (31-37) Red Cell Distribution Width 17.6 % (11.5-14.5) Platelet Count 153 x10^3/uL (140-400) Neutrophils (%) (Auto) 57 % (31-73) Lymphocytes (%) (Auto) 27 % (24-48) Monocytes (%) (Auto) 12 % (0-9) Eosinophils (%) (Auto) 4 % (0-3) Basophils (%) (Auto) 1 % (0-3) Neutrophils # (Auto) 2.4 x10^3/uL (1.8-7.7) Lymphocytes # (Auto) 1.1 x10^3/uL (1.0-4.8) Monocytes # (Auto) 0.5 x10^3/uL (0.0-1.1) Eosinophils # (Auto) 0.2 x10^3/uL (0.0-0.7) Basophils # (Auto) 0.1 x10^3/uL (0.0-0.2) Prothrombin Time 13.2 SEC (11.7-14.0) Prothromb Time International Ratio 1.0 (0.8-1.1) Sodium Level 136 mmol/L (136-145) Potassium Level 3.1 mmol/L (3.5-5.1) Chloride Level 100 mmol/L (98-107) Carbon Dioxide Level 23 mmol/L (21-32) Anion Gap 13 (6-14) Blood Urea Nitrogen 11 mg/dL (7-20) Creatinine 1.6 mg/dL (0.6-1.0) Estimated GFR (Cockcroft-Gault) 45.8 BUN/Creatinine Ratio 7 (6-20) Glucose Level 142 mg/dL (70-99) Calcium Level 9.0 mg/dL (8.5-10.1) Total Bilirubin 1.2 mg/dL (0.2-1.0) Aspartate Amino Transf (AST/SGOT) 34 U/L (15-37) Alanine Aminotransferase (ALT/SGPT) 23 U/L (14-59) Alkaline Phosphatase 87 U/L (46-116) Total Protein 8.4 g/dL (6.4-8.2) Albumin 4.5 g/dL (3.4-5.0) Albumin/Globulin Ratio 1.2 (1.0-1.7) Lipase 429 U/L (73-393) Ethyl Alcohol Level < 10 mg/dL (0-10) Urine Test Negative (NEG) Coronavirus (COVID-19)(PCR) Negative (NEGATIVE) Test 09/26/19 23:07 09/27/19 04:52 Glucose (Fingerstick) 120 mg/dL (70-99) White Blood Count 3.8 x10^3/uL (4.0-11.0) Red Blood Count 3.11 x10^6/uL (3.50-5.40) Hemoglobin 9.7 g/dL (12.0-15.5) Hematocrit 27.8 % (36.0-47.0) Mean Corpuscular Volume 89 fL (79-100) Mean Corpuscular Hemoglobin 31 pg (25-35) Mean Corpuscular Hemoglobin Concent 35 g/dL (31-37) Red Cell Distribution Width 17.5 % (11.5-14.5) Platelet Count 114 x10^3/uL (140-400) Neutrophils (%) (Auto) 51 % (31-73) Lymphocytes (%) (Auto) 32 % (24-48) Monocytes (%) (Auto) 12 % (0-9) Eosinophils (%) (Auto) 4 % (0-3) Basophils (%) (Auto) 1 % (0-3) Neutrophils # (Auto) 1.9 x10^3/uL (1.8-7.7) Lymphocytes # (Auto) 1.2 x10^3/uL (1.0-4.8) Monocytes # (Auto) 0.5 x10^3/uL (0.0-1.1) Eosinophils # (Auto) 0.2 x10^3/uL (0.0-0.7) Basophils # (Auto) 0.0 x10^3/uL (0.0-0.2) Sodium Level 142 mmol/L (136-145) Potassium Level 3.6 mmol/L (3.5-5.1) Chloride Level 111 mmol/L (98-107) Carbon Dioxide Level 23 mmol/L (21-32) Anion Gap 8 (6-14) Blood Urea Nitrogen 8 mg/dL (7-20) Creatinine 0.9 mg/dL (0.6-1.0) Estimated GFR (Cockcroft-Gault) 89.0 BUN/Creatinine Ratio 9 (6-20) Glucose Level 101 mg/dL (70-99) Calcium Level 7.3 mg/dL (8.5-10.1) Total Bilirubin 0.5 mg/dL (0.2-1.0) Aspartate Amino Transf (AST/SGOT) 24 U/L (15-37) Alanine Aminotransferase (ALT/SGPT) 16 U/L (14-59) Alkaline Phosphatase 60 U/L (46-116) Total Protein 6.1 g/dL (6.4-8.2) Albumin 3.1 g/dL (3.4-5.0) Albumin/Globulin Ratio 1.0 (1.0-1.7) Lipase 250 U/L (73-393) Medications Current Medications Sodium Chloride 1,000 ml @ 1,000 mls/hr Q1H IV Last administered on 09/26/19 13:29; Start 09/26/19 at 12:42; Stop 09/26/19 at 13:41; Status DC Fentanyl Citrate (Fentanyl 2ml Vial) 50 mcg 1X ONCE IVP Last administered on 09/26/19 13:33; Start 09/26/19 at 12:45; Stop 09/26/19 at 12:46; Status DC Ondansetron HCl (Zofran) 4 mg 1X ONCE IVP Last administered on 09/26/19at 13:32; Start 09/26/19 at 13:00; Stop 09/26/19 at 13:01; Status DC Iohexol (Omnipaque 300 Mg/ml) 75 ml 1X ONCE IV Last administered on 09/26/19 13:40; Start 09/26/19 at 13:15; Stop 09/26/19 at 13:16; Status DC Info (CONTRAST GIVEN -- Rx MONITORING) 1 each PRN DAILY PRN MC SEE COMMENTS; Start 09/26/19 at 13:15; Stop 09/28/19 at 13:14 Ceftriaxone Sodium (Rocephin) 1 gm 1X ONCE IVP Last administered on 09/26/19at 13:30; Start 09/26/19 at 13:30; Stop 09/26/19 at 13:31; Status DC Sodium Chloride 1,000 ml @ 1,000 mls/hr 1X ONCE IV Last administered on 09/26/19at 14:15; Start 09/26/19 at 14:15; Stop 09/26/19 at 15:14; Status DC Ondansetron HCl (Zofran) 4 mg PRN Q8HRS PRN IV NAUSEA/VOMITING; Start 09/26/19 at 14:45; Stop 09/27/19 at 14:44 Fentanyl Citrate (Fentanyl 2ml Vial) 50 mcg PRN Q1HR PRN IV PAIN Last administered on 09/26/19at 19:26; Start 09/26/19 at 14:45; Stop 09/26/19 at 20:13; Status DC Sodium Chloride 1,000 ml @ 150 mls/hr Q6H40M IV Last administered on 09/27/19at 03:09; Start 09/26/19 at 14:34; Stop 09/27/19 at 14:33 Sodium Chloride (Normal Saline Flush) 3 ml QSHIFT PRN IV AFTER MEDS AND BLOOD DRAWS; Start 09/26/19 at 16:00 Multivitamins 10 ml/Thiamine HCl 100 mg/Folic Acid 1 mg/Sodium Chloride 1,011.2 ml @ 125 mls/ hr 1X ONCE IV Last administered on 09/26/19at 17:16; Start 09/26/19 at 16:00; Stop 09/27/19 at 00:05; Status DC Ondansetron HCl (Zofran) 4 mg PRN Q4HRS PRN IV NAUSEA/VOMITING; Start 09/26/19 at 16:00 Acetaminophen (Tylenol) 650 mg PRN Q4HRS PRN PO TEMP OVER 100.4F OR MILD PAIN; Start 09/26/19 at 16:00 Al Hydroxide/Mg Hydroxide (Mylanta Plus Xs) 30 ml PRN DAILY PRN PO HEARTBURN / GAS; Start 09/26/19 at 16:00 Clonidine HCl (Catapres) 0.1 mg PRN Q6HRS PRN PO SBP>160 OR DBP>90; Start 09/26/19 at 16:00 Sodium Monofluorophosphate (Fleet Adult) 133 ml PRN DAILY PRN VT CONSTIPATION; Start 09/26/19 at 16:00 Docusate Sodium (Colace) 100 mg PRN BID PRN PO HARD STOOLS; Start 09/26/19 at 16:00 Albuterol/ Ipratropium (Duoneb) 3 ml Q4HRS NEB Last administered on 09/26/19at 20:44; Start 09/26/19 at 16:00; Stop 09/26/19 at 22:30; Status DC Guaifenesin (Robitussin) 200 mg PRN Q4HRS PRN PO COUGH; Start 09/26/19 at 16:00 Lorazepam (Ativan) 0.5 mg PRN Q4HRS PRN PO ANXIETY / AGITATION Last administe red on 09/26/19at 17:02; Start 09/26/19 at 16:00 Lorazepam (Ativan Inj) 2 mg PRN Q4HRS PRN IV ANXIETY / AGITATION Last administe red on 09/26/19at 23:06; Start 09/26/19 at 16:00 Enoxaparin Sodium (Lovenox 40mg Syringe) 40 mg Q24H SQ Last administered on 09/07 11/27at 17:02; Start 09/26/19 at 16:00 Multivitamins 10 ml/Thiamine HCl 100 mg/Folic Acid 1 mg/Sodium Chloride 1,011.2 ml @ 100 mls/ hr DAILY IV Last administered on 09/27/19at 08:21; Start 09/27/19 at 09:00; Stop 09/30/19 at 19:07 Multivitamins (Thera M Plus) 1 tab DAILY PO ; Start 10/01/19 at 09:00 Folic Acid (Folic Acid) 1 mg DAILY PO ; Start 10/01/19 at 09:00 Thiamine Mononitrate (Vitamin B-1) 100 mg DAILY PO ; Start 10/01/19 at 09:00 Lorazepam (Ativan) 4 mg PRN Q1HR PRN PO For CIWA 8-14; Start 09/26/19 at 16:15 Lorazepam (Ativan) 8 mg PRN Q1HR PRN PO For CIWA 15 or greater; Start 09/26/19 at 16:15 Lorazepam (Ativan Inj) 2 mg PRN Q1HR PRN IV For CIWA 8-14; Start 09/26/19 at 16:15 Lorazepam (Ativan Inj) 4 mg PRN Q1HR PRN IV For CIWA 15 or greater; Start 09/26/19 at 16:15 Haloperidol Lactate (Haldol Inj) 5 mg PRN Q4HRS PRN IVP Hallucinatns,Confusn,Delirium; Start 09/26/19 at 16:15 Diphenhydramine HCl (Benadryl) 25 mg PRN Q15MIN PRN IVP EPS symptoms 2'Haldol admin; Start 09/26/19 at 16:15 Clonidine HCl (Catapres) 0.1 mg PRN Q1HR PRN PO SBP > 180 or DBP > 100, MRX3; Start 09/26/19 at 16:15 Lorazepam (Ativan Inj) 2 mg PRN Q15MIN PRN IV SEE COMMENTS; Start 09/26/19 at 16:15 Lorazepam (Ativan Inj) 4 mg PRN Q15MIN PRN IV SEE COMMENTS; Start 09/26/19 at 16:15 Potassium Chloride (Klor-Con) 40 meq 1X ONCE PO Last administered on 09/26/19at 17:03; Start 09/26/19 at 16:15; Stop 09/26/19 at 16:23; Status DC Potassium Chloride (Klor-Con) 20 meq 1X ONCE PO Last administered on 09/26/19at 19:02; Start 09/26/19 at 18:15; Stop 09/26/19 at 18:16; Status DC Insulin Human Lispro (HumaLOG) 0-5 UNITS TIDWMEALS SQ ; Start 09/26/19 at 17:00 Dextrose (Dextrose 50%-Water Syringe) 12.5 gm PRN Q15MIN PRN IV SEE COMMENTS; Start 09/26/19 at 16:15 Pantoprazole Sodium (PROTONIX VIAL for IV PUSH) 40 mg DAILY08 IVP Last administered on 09/27/19at 08:19; Start 09/26/19 at 16:30 Hydromorphone HCl (Dilaudid) 1 mg PRN Q3HRS PRN IV PAIN Last administered on 09/26/19at 20:40; Start 09/26/19 at 20:15; Stop 09/26/19 at 22:46; Status DC Albuterol Sulfate (Ventolin Neb Soln) 2.5 mg PRN Q4HRS PRN NEB SHORTNESS OF BREATH; Start 09/26/19 at 22:45 Hydromorphone HCl (Dilaudid) 1.5 mg PRN Q3HRS PRN IV SEVERE PAIN 7-10 Last administered on 09/27/19at 08:19; Start 09/26/19 at 22:45 Hydromorphone HCl (Dilaudid) 0.5 mg 1X ONCE IV Last administered on 09/26/19at 22:59; Start 09/26/19 at 23:00; Stop 09/26/19 at 23:01; Status DC Active Scripts Active Reported Advil (Ibuprofen) 200 Mg Tablet 200 Mg PO PRN Q6HRS PRN One-Daily Multi-Vitamin (Multivitamin) 1 Each Tablet 1 Each PO DAILY Iron (Ferrous Sulfate) 325 Mg Tablet 325 Mg PO DAILY Vitals/I & O Vital Sign - Last 24 Hours 09/26/19 09/26/19 09/26/19 09/26/19 13:00 13:30 13:44 14:14 Temp 97.8 97.8 Pulse 130 106 94 82 Resp 16 B/P (MAP) 121/96 (104) 134/79 (97) 127/78 (94) 137/86 (103) Pulse Ox 100 100 100 O2 Delivery Room Air Room Air Room Air Room Air 09/26/19 09/26/19 09/26/19 09/26/19 14:44 15:14 15:44 16:14 Pulse 82 78 76 70 B/P (MAP) 151/93 (112) 128/84 (99) 152/96 (114) 157/88 (111) Pulse Ox 100 100 100 100 O2 Delivery Room Air Room Air Room Air Room Air 09/26/19 09/26/19 09/26/19 09/26/19 17:00 17:14 17:44 18:14 Pulse 80 76 72 74 B/P (MAP) 164/86 (112) 134/68 (90) 147/77 (100) 119/66 (83) Pulse Ox 100 100 100 100 O2 Delivery Room Air Room Air Room Air Room Air 09/26/19 09/26/19 09/26/19 09/26/19 19:26 19:56 20:00 20:40 Temp 98.1 98.1 Pulse 85 Resp 20 18 16 20 B/P (MAP) 141/100 (114) Pulse Ox 99 O2 Delivery Room Air Room Air Room Air Room Air 09/26/19 09/26/19 09/26/19 09/26/19 20:46 21:10 22:59 23:00 Temp 97.8 97.8 Pulse 90 Resp 18 20 16 B/P (MAP) 104/76 (85) Pulse Ox 100 99 O2 Delivery Room Air Room Air Room Air Room Air 09/26/19 09/26/19 09/27/19 09/27/19 23:29 23:47 00:17 03:00 Temp 97.5 97.5 Pulse 73 Resp 18 20 16 16 B/P (MAP) 99/59 (72) Pulse Ox 94 O2 Delivery Room Air Room Air Room Air Room Air 09/27/19 09/27/19 09/27/19 09/27/19 03:09 03:39 07:00 08:19 Temp 97.3 97.3 Pulse 69 Resp 20 20 19 B/P (MAP) 106/75 (85) Pulse Ox 99 O2 Delivery Room Air Room Air Room Air Room Air Intake and Output 09/26/19 09/26/19 09/27/19 15:00 23:00 07:00 Intake Total 1000 ml 2000 ml Balance 1000 ml 2000 ml Justicifation of Admission Dx: Justifications for Admission: Justification of Admission Dx: N/A ALAN OAKES MD Sep 27, 2019 09:26
--- NOTE | 2019-09-27 09:34 | NUR ---
SW following. Spoke with RN and reviewed chart. SW consulted for resources r/t transportation, medication assistance, and smoking cessation. Pt has Medicaid. PAT team referral completed r/t substance abuse treatment. SW to continue following.
[2019-09-27 11:36] VITALS: BP 104/73
--- NOTE | 2019-09-27 13:12 | NUR ---
Pt. c/o Abd pain, too early for current pain med order. Dr. Tia cheatham. Pt rates pain at 9-12/17
[2019-09-27] MEDS: KETOROLAC 30 MG/ML VIAL. IVP PRN ×2 (14:01→20:49)
[2019-09-27 15:19] VITALS: BP 137/85
[2019-09-27] MEDS: ENOXAPARIN 40 MG/0.4 ML SYRINGE. SQ SCH (16:12)
[2019-09-27 19:00] VITALS: BP 114/74
[2019-09-27 23:00] VITALS: BP 131/97
[2019-09-28 03:00] VITALS: BP 134/92
[2019-09-28] MEDS: HYDROmorphone 2 MG/ML VIAL IV PRN ×5 (03:50→21:28)
[2019-09-28] MEDS: KETOROLAC 30 MG/ML VIAL. IVP PRN (05:09)
[2019-09-28 06:51] LABS: HEMATOCRIT 30.7 % (36.0-47.0); HEMOGLOBIN 10.4 g/dL (12.0-15.5); RED BLOOD COUNT 3.44 x10^6/uL (3.50-5.40); RED CELL DISTRIBUTION WIDTH 17.6 % (11.5-14.5); WHITE BLOOD COUNT 4.6 x10^3/uL (4.0-11.0)
[2019-09-28 07:27] VITALS: BP 126/86
[2019-09-28] MEDS: INSULIN LISPRO 300 UNITS/3 ML VIAL. SQ SCH ×3 (07:54→16:34)
--- NOTE | 2019-09-28 08:12 | PDOC ---
PROGRESS NOTES Chief Complaint Chief Complaint A/P: Acute abdominal pain ALCOHOL ABUSE Acute pancreatitis. Prominent appearing common bile duct and the pancreatic duct likely postcholecystectomy changes or distal common bile duct obstruction not completely excluded. Consider follow-up MRCP. Mild thickened appearance of the wall of the sigmoid colon could be due to nondistention or mild colitis COCAINE ABUSE History of Present Illness History of Present Illness Ms Schmidt is a 28 year old female who presents with states epigastric abdominal pain 3 days that feels like " kicked in the stomach" with nausea and vomiting. PAIN wraps around to her bilateral flanks. Patient denies dizziness, chest pain, shortness of air, syncope, dysuria, vaginal discharge, headache, fever, diarrhea. She states that she used to be a heavy drinker but now drinks a 1/2 bottle of wine a day. She states in the past that she has had "pancreas issues". She rates her pain a 9 out of 10. She stopped eating on 09/24/2019 when she realized she was probably having pancreatitis. 09/26: Labs improved. advanced diet Is asking for food today. Afebrile. Lipase normalized. Still with moderate 6 out of 10 abdominal pain radiating into the back. Plan: ADAT if ok with GI Vitals Vitals Vital Signs Date Time Temp Pulse Resp B/P (MAP) Pulse Ox O2 Delivery O2 Flow Rate FiO2 09/28/19 07:27 98.2 82 18 126/86 (99) 99 Room Air 98.2 Physical Exam General: Alert, Oriented X3, Cooperative, No acute distress Lungs: Clear Abdomen: Normal bowel sounds, Soft Extremities: No cyanosis Skin: No breakdown Labs LABS Laboratory Tests Test 09/27/19 11:58 09/27/19 18:15 09/27/19 20:37 09/28/19 06:22 Glucose (Fingerstick) 106 mg/dL (70-99) 102 mg/dL (70-99) 93 mg/dL (70-99) White Blood Count 4.6 x10^3/uL (4.0-11.0) Red Blood Count 3.44 x10^6/uL (3.50-5.40) Hemoglobin 10.4 g/dL (12.0-15.5) Hematocrit 30.7 % (36.0-47.0) Mean Corpuscular Volume 89 fL (79-100) Mean Corpuscular Hemoglobin 30 pg (25-35) Mean Corpuscular Hemoglobin Concent 34 g/dL (31-37) Red Cell Distribution Width 17.6 % (11.5-14.5) Platelet Count 114 x10^3/uL (140-400) Test 09/28/19 07:47 Glucose (Fingerstick) 120 mg/dL (70-99) Assessment and Plan Assessmemt and Plan Problems Medical Problems: (1) Pancreatitis Status: Acute Comment Review of Relevant I have reviewed the following items toan (where applicable) has been applied. Labs Laboratory Tests Test 09/26/19 12:47 09/26/19 13:00 09/26/19 13:04 09/26/19 14:45 Urine Collection Type Unknown Urine Color Lydia Urine Clarity Cloudy Urine pH 6.0 (<5.0-8.0) Urine Specific [place] >=1.030 (1.000-1.030) Urine Protein 100 mg/dL (NEG-TRACE) Urine Glucose (UA) Negative mg/dL (NEG) Urine Ketones (Stick) Trace mg/dL (NEG) Urine Blood Trace (NEG) Urine Nitrite Positive (NEG) Urine Bilirubin Small (NEG) Urine Urobilinogen Dipstick 1.0 mg/dL (0.2 mg/dL) Urine Leukocyte Esterase Moderate (NEG) Urine RBC 3-5 /HPF (0-2) Urine WBC >40 /HPF (0-4) Urine Squamous Epithelial Cells Mod /LPF Urine Bacteria Many /HPF (0-FEW) Urine Hyaline Casts Moderate /HPF Urine Mucus Mod /LPF Urine Opiates Screen Pos (NEG) Urine Methadone Screen Neg (NEG) Urine Barbiturates Neg (NEG) Urine Phencyclidine Screen Neg (NEG) Urine Amphetamine/Methamphetamine Neg (NEG) Urine Benzodiazepines Screen Neg (NEG) Urine Cocaine Screen Pos (NEG) Urine Cannabinoids Screen Neg (NEG) Urine Ethyl Alcohol Neg (NEG) White Blood Count 4.2 x10^3/uL (4.0-11.0) Red Blood Count 4.14 x10^6/uL (3.50-5.40) Hemoglobin 12.7 g/dL (12.0-15.5) Hematocrit 36.6 % (36.0-47.0) Mean Corpuscular Volume 88 fL (79-100) Mean Corpuscular Hemoglobin 31 pg (25-35) Mean Corpuscular Hemoglobin Concent 35 g/dL (31-37) Red Cell Distribution Width 17.6 % (11.5-14.5) Platelet Count 153 x10^3/uL (140-400) Neutrophils (%) (Auto) 57 % (31-73) Lymphocytes (%) (Auto) 27 % (24-48) Monocytes (%) (Auto) 12 % (0-9) Eosinophils (%) (Auto) 4 % (0-3) Basophils (%) (Auto) 1 % (0-3) Neutrophils # (Auto) 2.4 x10^3/uL (1.8-7.7) Lymphocytes # (Auto) 1.1 x10^3/uL (1.0-4.8) Monocytes # (Auto) 0.5 x10^3/uL (0.0-1.1) Eosinophils # (Auto) 0.2 x10^3/uL (0.0-0.7) Basophils # (Auto) 0.1 x10^3/uL (0.0-0.2) Prothrombin Time 13.2 SEC (11.7-14.0) Prothromb Time International Ratio 1.0 (0.8-1.1) Sodium Level 136 mmol/L (136-145) Potassium Level 3.1 mmol/L (3.5-5.1) Chloride Level 100 mmol/L (98-107) Carbon Dioxide Level 23 mmol/L (21-32) Anion Gap 13 (6-14) Blood Urea Nitrogen 11 mg/dL (7-20) Creatinine 1.6 mg/dL (0.6-1.0) Estimated GFR (Cockcroft-Gault) 45.8 BUN/Creatinine Ratio 7 (6-20) Glucose Level 142 mg/dL (70-99) Calcium Level 9.0 mg/dL (8.5-10.1) Total Bilirubin 1.2 mg/dL (0.2-1.0) Aspartate Amino Transf (AST/SGOT) 34 U/L (15-37) Alanine Aminotransferase (ALT/SGPT) 23 U/L (14-59) Alkaline Phosphatase 87 U/L (46-116) Total Protein 8.4 g/dL (6.4-8.2) Albumin 4.5 g/dL (3.4-5.0) Albumin/Globulin Ratio 1.2 (1.0-1.7) Lipase 429 U/L (73-393) Ethyl Alcohol Level < 10 mg/dL (0-10) Urine Test Negative (NEG) Coronavirus (COVID-19)(PCR) Negative (NEGATIVE) Test 09/26/19 23:07 09/27/19 04:52 09/27/19 11:58 09/27/19 18:15 Glucose (Fingerstick) 120 mg/dL (70-99) 106 mg/dL (70-99) 102 mg/dL (70-99) White Blood Count 3.8 x10^3/uL (4.0-11.0) Red Blood Count 3.11 x10^6/uL (3.50-5.40) Hemoglobin 9.7 g/dL (12.0-15.5) Hematocrit 27.8 % (36.0-47.0) Mean Corpuscular Volume 89 fL (79-100) Mean Corpuscular Hemoglobin 31 pg (25-35) Mean Corpuscular Hemoglobin Concent 35 g/dL (31-37) Red Cell Distribution Width 17.5 % (11.5-14.5) Platelet Count 114 x10^3/uL (140-400) Neutrophils (%) (Auto) 51 % (31-73) Lymphocytes (%) (Auto) 32 % (24-48) Monocytes (%) (Auto) 12 % (0-9) Eosinophils (%) (Auto) 4 % (0-3) Basophils (%) (Auto) 1 % (0-3) Neutrophils # (Auto) 1.9 x10^3/uL (1.8-7.7) Lymphocytes # (Auto) 1.2 x10^3/uL (1.0-4.8) Monocytes # (Auto) 0.5 x10^3/uL (0.0-1.1) Eosinophils # (Auto) 0.2 x10^3/uL (0.0-0.7) Basophils # (Auto) 0.0 x10^3/uL (0.0-0.2) Sodium Level 142 mmol/L (136-145) Potassium Level 3.6 mmol/L (3.5-5.1) Chloride Level 111 mmol/L (98-107) Carbon Dioxide Level 23 mmol/L (21-32) Anion Gap 8 (6-14) Blood Urea Nitrogen 8 mg/dL (7-20) Creatinine 0.9 mg/dL (0.6-1.0) Estimated GFR (Cockcroft-Gault) 89.0 BUN/Creatinine Ratio 9 (6-20) Glucose Level 101 mg/dL (70-99) Calcium Level 7.3 mg/dL (8.5-10.1) Iron Level 25 ug/dL (50-170) Total Iron Binding Capacity 185 ug/dL (250-450) Iron Saturation 14 % (15-34) Total Bilirubin 0.5 mg/dL (0.2-1.0) Aspartate Amino Transf (AST/SGOT) 24 U/L (15-37) Alanine Aminotransferase (ALT/SGPT) 16 U/L (14-59) Alkaline Phosphatase 60 U/L (46-116) Total Protein 6.1 g/dL (6.4-8.2) Albumin 3.1 g/dL (3.4-5.0) Albumin/Globulin Ratio 1.0 (1.0-1.7) Lipase 250 U/L (73-393) Test 09/27/19 20:37 09/28/19 06:22 09/28/19 07:47 Glucose (Fingerstick) 93 mg/dL (70-99) 120 mg/dL (70-99) White Blood Count 4.6 x10^3/uL (4.0-11.0) Red Blood Count 3.44 x10^6/uL (3.50-5.40) Hemoglobin 10.4 g/dL (12.0-15.5) Hematocrit 30.7 % (36.0-47.0) Mean Corpuscular Volume 89 fL (79-100) Mean Corpuscular Hemoglobin 30 pg (25-35) Mean Corpuscular Hemoglobin Concent 34 g/dL (31-37) Red Cell Distribution Width 17.6 % (11.5-14.5) Platelet Count 114 x10^3/uL (140-400) Laboratory Tests Test 09/27/19 11:58 09/27/19 18:15 09/27/19 20:37 09/28/19 06:22 Glucose (Fingerstick) 106 mg/dL (70-99) 102 mg/dL (70-99) 93 mg/dL (70-99) White Blood Count 4.6 x10^3/uL (4.0-11.0) Red Blood Count 3.44 x10^6/uL (3.50-5.40) Hemoglobin 10.4 g/dL (12.0-15.5) Hematocrit 30.7 % (36.0-47.0) Mean Corpuscular Volume 89 fL (79-100) Mean Corpuscular Hemoglobin 30 pg (25-35) Mean Corpuscular Hemoglobin Concent 34 g/dL (31-37) Red Cell Distribution Width 17.6 % (11.5-14.5) Platelet Count 114 x10^3/uL (140-400) Test 09/28/19 07:47 Glucose (Fingerstick) 120 mg/dL (70-99) Microbiology 09/26/19 Urine Culture - Preliminary, Resulted Medications Current Medications Sodium Chloride 1,000 ml @ 1,000 mls/hr Q1H IV Last administered on 09/26/19at 13:29; Start 09/26/19 at 12:42; Stop 09/26/19 at 13:41; Status DC Fentanyl Citrate (Fentanyl 2ml Vial) 50 mcg 1X ONCE IVP Last administered on 09/26/19at 13:33; Start 09/26/19 at 12:45; Stop 09/26/19 at 12:46; Status DC Ondansetron HCl (Zofran) 4 mg 1X ONCE IVP Last administered on 09/26/19at 13:32; Start 09/26/19 at 13:00; Stop 09/26/19 at 13:01; Status DC Iohexol (Omnipaque 300 Mg/ml) 75 ml 1X ONCE IV Last administered on 09/26/19at 13:40; Start 09/26/19 at 13:15; Stop 09/26/19 at 13:16; Status DC Info (CONTRAST GIVEN -- Rx MONITORING) 1 each PRN DAILY PRN MC SEE COMMENTS; Start 09/26/19 at 13:15; Stop 09/28/19 at 13:14 Ceftriaxone Sodium (Rocephin) 1 gm 1X ONCE IVP Last administered on 09/26/19at 13:30; Start 09/26/19 at 13:30; Stop 09/26/19 at 13:31; Status DC Sodium Chloride 1,000 ml @ 1,000 mls/hr 1X ONCE IV Last administered on 09/26/19at 14:15; Start 09/26/19 at 14:15; Stop 09/26/19 at 15:14; Status DC Ondansetron HCl (Zofran) 4 mg PRN Q8HRS PRN IV NAUSEA/VOMITING; Start 09/26/19 at 14:45; Stop 09/27/19 at 14:44; Status DC Fentanyl Citrate (Fentanyl 2ml Vial) 50 mcg PRN Q1HR PRN IV PAIN Last administered on 09/26/19at 19:26; Start 09/26/19 at 14:45; Stop 09/26/19 at 20:13; Status DC Sodium Chloride 1,000 ml @ 150 mls/hr Q6H40M IV Last administered on 09/27/19at 03:09; Start 09/26/19 at 14:34; Stop 09/27/19 at 14:33; Status DC Sodium Chloride (Normal Saline Flush) 3 ml QSHIFT PRN IV AFTER MEDS AND BLOOD DRAWS; Start 09/26/19 at 16:00 Multivitamins 10 ml/Thiamine HCl 100 mg/Folic Acid 1 mg/Sodium Chloride 1,011.2 ml @ 125 mls/ hr 1X ONCE IV Last administered on 09/26/19at 17:16; Start 09/26/19 at 16:00; Stop 09/27/19 at 00:05; Status DC Ondansetron HCl (Zofran) 4 mg PRN Q4HRS PRN IV NAUSEA/VOMITING; Start 09/26/19 at 16:00 Acetaminophen (Tylenol) 650 mg PRN Q4HRS PRN PO TEMP OVER 100.4F OR MILD PAIN; Start 09/26/19 at 16:00 Al Hydroxide/Mg Hydroxide (Mylanta Plus Xs) 30 ml PRN DAILY PRN PO HEARTBURN / GAS; Start 09/26/19 at 16:00 Clonidine HCl (Catapres) 0.1 mg PRN Q6HRS PRN PO SBP>160 OR DBP>90; Start 09/26/19 at 16:00 Sodium Monofluorophosphate (Fleet Adult) 133 ml PRN DAILY PRN [place] CONSTIPATION; Start 09/26/19 at 16:00 Docusate Sodium (Colace) 100 mg PRN BID PRN PO HARD STOOLS; Start 09/26/19 at 16:00 Albuterol/ Ipratropium (Duoneb) 3 ml Q4HRS NEB Last administered on 09/26/19at 20:44; Start 09/26/19 at 16:00; Stop 09/26/19 at 22:30; Status DC Guaifenesin (Robitussin) 200 mg PRN Q4HRS PRN PO COUGH; Start 09/26/19 at 16:00 Lorazepam (Ativan) 0.5 mg PRN Q4HRS PRN PO ANXIETY / AGITATION Last administered on 09/26/19at 17:02; Start 09/26/19 at 16:00 Lorazepam (Ativan Inj) 2 mg PRN Q4HRS PRN IV ANXIETY / AGITATION Last administered on 09/28/19at 05:08; Start 09/26/19 at 16:00 Enoxaparin Sodium (Lovenox 40mg Syringe) 40 mg Q24H SQ Last administered on 09/27/19at 16:12; Start 09/26/19 at 16:00 Multivitamins 10 ml/Thiamine HCl 100 mg/Folic Acid 1 mg/Sodium Chloride 1,011.2 ml @ 100 mls/ hr DAILY IV Last administered on 09/27/19at 08:21; Start 09/27/19 at 09:00; Stop 09/30/19 at 19:07 Multivitamins (Thera M Plus) 1 tab DAILY PO ; Start 10/01/19 at 09:00 Folic Acid (Folic Acid) 1 mg DAILY PO ; Start 10/01/19 at 09:00 Thiamine Mononitrate (Vitamin B-1) 100 mg DAILY PO ; Start 10/01/19 at 09:00 Lorazepam (Ativan) 4 mg PRN Q1HR PRN PO For CIWA 8-14; Start 09/26/19 at 16:15 Lorazepam (Ativan) 8 mg PRN Q1HR PRN PO For CIWA 15 or greater; Start 09/26/19 at 16:15 Lorazepam (Ativan Inj) 2 mg PRN Q1HR PRN IV For CIWA 8-14; Start 09/26/19 at 16:15 Lorazepam (Ativan Inj) 4 mg PRN Q1HR PRN IV For CIWA 15 or greater; Start 09/26/19 at 16:15 Haloperidol Lactate (Haldol Inj) 5 mg PRN Q4HRS PRN IVP Hallucinatns,Confusn,Delirium; Start 09/26/19 at 16:15 Diphenhydramine HCl (Benadryl) 25 mg PRN Q15MIN PRN IVP EPS symptoms 2'Haldol admin; Start 09/26/19 at 16:15 Clonidine HCl (Catapres) 0.1 mg PRN Q1HR PRN PO SBP > 180 or DBP > 100, MRX3; Start 09/26/19 at 16:15 Lorazepam (Ativan Inj) 2 mg PRN Q15MIN PRN IV SEE COMMENTS; Start 09/26/19 at 16:15 Lorazepam (Ativan Inj) 4 mg PRN Q15MIN PRN IV SEE COMMENTS; Start 09/26/19 at 16:15 Potassium Chloride (Klor-Con) 40 meq 1X ONCE PO Last administered on 09/26/19at 17:03; Start 09/26/19 at 16:15; Stop 09/26/19 at 16:23; Status DC Potassium Chloride (Klor-Con) 20 meq 1X ONCE PO Last administered on 09/26/19at 19:02; Start 09/26/19 at 18:15; Stop 09/26/19 at 18:16; Status DC Insulin Human Lispro (HumaLOG) 0-5 UNITS TIDWMEALS SQ ; Start 09/26/19 at 17:00 Dextrose (Dextrose 50%-Water Syringe) 12.5 gm PRN Q15MIN PRN IV SEE COMMENTS; Start 09/26/19 at 16:15 Pantoprazole Sodium (PROTONIX VIAL for IV PUSH) 40 mg DAILY08 IVP Last administered on 09/27/19at 08:19; Start 09/26/19 at 16:30; Stop 09/27/19 at 10:02; Status DC Hydromorphone HCl (Dilaudid) 1 mg PRN Q3HRS PRN IV PAIN Last administered on 09/26/19at 20:40; Start 09/26/19 at 20:15; Stop 09/26/19 at 22:46; Status DC Albuterol Sulfate (Ventolin Neb Soln) 2.5 mg PRN Q4HRS PRN NEB SHORTNESS OF BREATH; Start 09/26/19 at 22:45 Hydromorphone HCl (Dilaudid) 1.5 mg PRN Q3HRS PRN IV SEVERE PAIN 7-10 Last administered on 09/28/19at 03:50; Start 09/26/19 at 22:45 Hydromorphone HCl (Dilaudid) 0.5 mg 1X ONCE IV Last administered on 09/26/19at 22:59; Start 09/26/19 at 23:00; Stop 09/26/19 at 23:01; Status DC Pantoprazole Sodium (Protonix) 40 mg DAILYAC PO ; Start 09/28/19 at 07:30 Ketorolac Tromethamine (Toradol 30mg Vial) 30 mg PRN Q6HRS PRN IVP PAIN Last administered on 09/28/19at 05:09; Start 09/27/19 at 13:45; Stop 10/02/19 at 13:44 Active Scripts Active Reported Advil (Ibuprofen) 200 Mg Tablet 200 Mg PO PRN Q6HRS PRN One-Daily Multi-Vitamin (Multivitamin) 1 Each Tablet 1 Each PO DAILY Iron (Ferrous Sulfate) 325 Mg Tablet 325 Mg PO DAILY Vitals/I & O Vital Sign - Last 24 Hours 09/27/19 09/27/19 09/27/19 09/27/19 08:19 11:22 11:36 11:57 Temp 97.4 97.4 Pulse 72 Resp 20 B/P (MAP) 104/73 (83) Pulse Ox 100 O2 Delivery Room Air Room Air Room Air Room Air 09/27/19 09/27/19 09/27/19 09/27/19 15:19 16:12 17:26 19:00 Temp 97.9 98.0 97.9 98.0 Pulse 71 74 Resp 18 18 B/P (MAP) 137/85 (102) 114/74 (87) Pulse Ox 100 97 O2 Delivery Room Air Room Air Room Air Room Air 09/27/19 09/27/19 09/27/19 09/27/19 19:23 19:53 23:00 23:55 Temp 97.5 97.5 Pulse 78 Resp 20 20 18 20 B/P (MAP) 131/97 (108) Pulse Ox 100 O2 Delivery Room Air Room Air Room Air Room Air 09/28/19 09/28/19 09/28/19 09/28/19 00:25 03:00 03:50 04:20 Temp 98.0 98.0 Pulse 85 Resp 20 B/P (MAP) 134/92 (106) Pulse Ox 99 O2 Delivery Room Air Room Air Room Air Room Air 09/28/19 07:27 Temp 98.2 98.2 Pulse 82 Resp 18 B/P (MAP) 126/86 (99) Pulse Ox 99 O2 Delivery Room Air Intake and Output 09/27/19 09/27/19 09/28/19 15:00 23:00 07:00 Intake Total 630 ml 500 ml 240 ml Balance 630 ml 500 ml 240 ml Justicifation of Admission Dx: Justifications for Admission: Justification of Admission Dx: N/A ALAN OAKES MD Sep 28, 2019 08:12
[2019-09-28] MEDS: PANTOPRAZOLE 40 MG TABLET.DR. PO SCH (08:17)
[2019-09-28] MEDS: MULTIVIT INFUSN,ADULT 4,VIT K 10 ML, THIAMINE INJ 100 MG, FOLIC ACID INJ 1 MG in IV NOR... IV SCH (08:17)
--- NOTE | 2019-09-28 10:18 | PDOC ---
Subjective: Subjective: Still has pain. Tired of waiting on pain medication. Might hurt to eat clear liquids but also wants more to eat. Objective: Vital Signs: Vital Signs Date Time Temp Pulse Resp B/P (MAP) Pulse Ox O2 Delivery O2 Flow Rate FiO2 09/28/19 09:09 Room Air 09/28/19 07:27 98.2 82 18 126/86 (99) 99 98.2 Labs: Laboratory Tests Test 09/27/19 11:58 09/27/19 18:15 09/27/19 20:37 09/28/19 06:22 Glucose (Fingerstick) 106 mg/dL 102 mg/dL 93 mg/dL White Blood Count 4.6 x10^3/uL Red Blood Count 3.44 x10^6/uL Hemoglobin 10.4 g/dL Hematocrit 30.7 % Mean Corpuscular Volume 89 fL Mean Corpuscular Hemoglobin 30 pg Mean Corpuscular Hemoglobin Concent 34 g/dL Red Cell Distribution Width 17.6 % Platelet Count 114 x10^3/uL Test 09/28/19 07:47 Glucose (Fingerstick) 120 mg/dL URINE CULTURE Final Final GREATER THAN 100,000 CFU/ML GRAM NEGATIVE RODS on 09/27/19 at 0955 FINAL ID= [ESCHERICHIA COLI] PE: GEN: NAD LUNGS: CTAB HEART: RRR ABD: quiet BS, soft, mild tender epigastrium NEURO/PSYCH: A & O 3, drowsy, flat A/P: Recurrent pancreatitis - s/p toya, probably 2/2 alcohol UTI +cocaine COVID-19 negative 09/25 -- Orders to ADAT yesterday - discussed again with her. Consider outpt MRCP. Justicifation of Admission Dx: Justifications for Admission: Justification of Admission Dx: N/A ALICIA EVANS Sep 28, 2019 10:18
[2019-09-28] MEDS: cefTRIAXone IV Push 1 GM VIAL. IVP SCH (10:56)
[2019-09-28 11:07] VITALS: BP 125/83
--- NOTE | 2019-09-28 11:07 | NUR ---
Pt. states her pain is not as bad but is still there, unable to rate. Pt. offered Lortab, refused at this time, stated she would like to try a pain pill later.
--- NOTE | 2019-09-28 12:24 | NUR ---
SW following. Discussed with RN, pt from home with boyfriend. Full liquid diet. Fuad with PAT met with pt, pt denies having a problem, states she does not do cocaine despite being positive. Pt denied any HI, SI or mental health concerns. Pt has chronic back pain, which she follows a pain management plan with her PCP. Pt was provided with information for RADAC and RSI. SW consult for transportation, medications and smoking cessation. SW to provide resources to pt prior to discharge. SW will continue to follow.
[2019-09-28] MEDS: HYDROcodone/APAP 5/325MG 1 TAB TABLET PO PRN ×2 (12:48→19:47)
[2019-09-28] MEDS: LORazepam 0.5 MG TABLET PO PRN (15:21)
[2019-09-28] MEDS: ENOXAPARIN 40 MG/0.4 ML SYRINGE. SQ SCH (15:22)
[2019-09-28 15:39] VITALS: BP 128/81
[2019-09-28 19:00] VITALS: BP 139/94
--- NOTE | 2019-09-28 19:45 | NUR ---
Patient tearful, complains that her pain has increased since yesterday and she doesn't know why. Patient noted to be on full liquid diet, but a salad and a few other items that are not full-liquid diet-appropriate were present on bedside table. Provided education on pancreatitis treatment/alleviation of symptoms. Patient verbalizes understanding.
[2019-09-28] MEDS ORDERED: LIDOCAINE (700MG/PATCH) PATCH. TD PRN (21:45)
[2019-09-28] MEDS ORDERED: ZOLPIDEM 5 MG TABLET. PO PRN (23:45)
[2019-09-29] MEDS: HYDROmorphone 2 MG/ML VIAL IV PRN ×3 (00:43→08:31)
[2019-09-29 03:00] VITALS: BP 128/84
[2019-09-29 07:00] VITALS: BP 109/75
[2019-09-29] MEDS: INSULIN LISPRO 300 UNITS/3 ML VIAL. SQ SCH ×2 (08:00→12:00)
[2019-09-29] MEDS: PANTOPRAZOLE 40 MG TABLET.DR. PO SCH (08:31)
--- NOTE | 2019-09-29 08:40 | PDOC ---
PROGRESS NOTES Chief Complaint Chief Complaint A/P: Acute abdominal pain ALCOHOL ABUSE Acute pancreatitis. Prominent appearing common bile duct and the pancreatic duct likely postcholecystectomy changes or distal common bile duct obstruction not completely excluded. Consider follow-up MRCP. Mild thickened appearance of the wall of the sigmoid colon could be due to nondistention or mild colitis COCAINE ABUSE History of Present Illness History of Present Illness Ms Schmidt is a 28 year old female who presents with states epigastric abdominal pain 3 days that feels like " kicked in the stomach" with nausea and vomiting. PAIN wraps around to her bilateral flanks. Patient denies dizziness, chest pain, shortness of air, syncope, dysuria, vaginal discharge, headache, fever, diarrhea. She states that she used to be a heavy drinker but now drinks a 1/2 bottle of wine a day. She states in the past that she has had "pancreas issues". She rates her pain a 9 out of 10. She stopped eating on 09/24/2019 when she realized she was probably having pancreatitis. 09/26: Labs improved. advanced diet 721: Is asking for food today. Afebrile. Lipase normalized. Still with moderate 6 out of 10 abdominal pain radiating into the back. Afebrile. Urine returned with pansensitive E. coli. She left the hospital to go to her car earlier today. I discussed that due to her positive urine drug screen for cocaine that come back to the hospitals and appropriate and if she feels well enough to leave to her car she can continue her treatment outpatient and I have offered to call in her 3-day prescription for Bactrim for her UTI to her pharmacy. Plan: Discharge Vitals Vitals Vital Signs Date Time Temp Pulse Resp B/P (MAP) Pulse Ox O2 Delivery O2 Flow Rate FiO2 09/29/19 07:00 97.8 17 17 109/75 (86) 100 Room Air 97.8 Physical Exam General: Alert, Oriented X3, Cooperative, No acute distress Lungs: Clear Abdomen: Normal bowel sounds, Soft Extremities: No cyanosis Skin: No breakdown Labs LABS Laboratory Tests Test 09/28/19 12:18 09/28/19 16:30 Glucose (Fingerstick) 112 mg/dL (70-99) 131 mg/dL (70-99) Assessment and Plan Assessmemt and Plan Problems Medical Problems: (1) Pancreatitis Status: Acute Comment Review of Relevant I have reviewed the following items toan (where applicable) has been applied. Labs Laboratory Tests Test 09/27/19 11:58 09/27/19 18:15 09/27/19 20:37 09/28/19 06:22 Glucose (Fingerstick) 106 mg/dL (70-99) 102 mg/dL (70-99) 93 mg/dL (70-99) White Blood Count 4.6 x10^3/uL (4.0-11.0) Red Blood Count 3.44 x10^6/uL (3.50-5.40) Hemoglobin 10.4 g/dL (12.0-15.5) Hematocrit 30.7 % (36.0-47.0) Mean Corpuscular Volume 89 fL (79-100) Mean Corpuscular Hemoglobin 30 pg (25-35) Mean Corpuscular Hemoglobin Concent 34 g/dL (31-37) Red Cell Distribution Width 17.6 % (11.5-14.5) Platelet Count 114 x10^3/uL (140-400) Test 09/28/19 07:47 09/28/19 12:18 09/28/19 16:30 Glucose (Fingerstick) 120 mg/dL (70-99) 112 mg/dL (70-99) 131 mg/dL (70-99) Laboratory Tests Test 09/28/19 12:18 09/28/19 16:30 Glucose (Fingerstick) 112 mg/dL (70-99) 131 mg/dL (70-99) Microbiology 09/26/19 Urine Culture - Final, Complete 09/26/19 Antimicrobic Susceptibility - Final, Complete Medications Current Medications Sodium Chloride 1,000 ml @ 1,000 mls/hr Q1H IV Last administered on 09/26/19at 13:29; Start 09/26/19 at 12:42; Stop 09/26/19 at 13:41; Status DC Fentanyl Citrate (Fentanyl 2ml Vial) 50 mcg 1X ONCE IVP Last administered on 09/26/19at 13:33; Start 09/26/19 at 12:45; Stop 09/26/19 at 12:46; Status DC Ondansetron HCl (Zofran) 4 mg 1X ONCE IVP Last administered on 09/26/19at 13:32; Start 09/26/19 at 13:00; Stop 09/26/19 at 13:01; Status DC Iohexol (Omnipaque 300 Mg/ml) 75 ml 1X ONCE IV Last administered on 09/26/19at 13:40; Start 09/26/19 at 13:15; Stop 09/26/19 at 13:16; Status DC Info (CONTRAST GIVEN -- Rx MONITORING) 1 each PRN DAILY PRN MC SEE COMMENTS; Start 09/26/19 at 13:15; Stop 09/28/19 at 13:14; Status DC Ceftriaxone Sodium (Rocephin) 1 gm 1X ONCE IVP Last administered on 09/26/19at 13:30; Start 09/26/19 at 13:30; Stop 09/26/19 at 13:31; Status DC Sodium Chloride 1,000 ml @ 1,000 mls/hr 1X ONCE IV Last administered on 09/26/19at 14:15; Start 09/26/19 at 14:15; Stop 09/26/19 at 15:14; Status DC Ondansetron HCl (Zofran) 4 mg PRN Q8HRS PRN IV NAUSEA/VOMITING; Start 09/26/19 at 14:45; Stop 09/27/19 at 14:44; Status DC Fentanyl Citrate (Fentanyl 2ml Vial) 50 mcg PRN Q1HR PRN IV PAIN Last administered on 09/26/19at 19:26; Start 09/26/19 at 14:45; Stop 09/26/19 at 20:13; Status DC Sodium Chloride 1,000 ml @ 150 mls/hr Q6H40M IV Last administered on 09/27/19at 03:09; Start 09/26/19 at 14:34; Stop 09/27/19 at 14:33; Status DC Sodium Chloride (Normal Saline Flush) 3 ml QSHIFT PRN IV AFTER MEDS AND BLOOD DRAWS; Start 09/26/19 at 16:00 Multivitamins 10 ml/Thiamine HCl 100 mg/Folic Acid 1 mg/Sodium Chloride 1,011.2 ml @ 125 mls/ hr 1X ONCE IV Last administered on 09/26/19at 17:16; Start 09/26/19 at 16:00; Stop 09/27/19 at 00:05; Status DC Ondansetron HCl (Zofran) 4 mg PRN Q4HRS PRN IV NAUSEA/VOMITING; Start 09/26/19 at 16:00 Acetaminophen (Tylenol) 650 mg PRN Q4HRS PRN PO TEMP OVER 100.4F OR MILD PAIN; Start 09/26/19 at 16:00 Al Hydroxide/Mg Hydroxide (Mylanta Plus Xs) 30 ml PRN DAILY PRN PO HEARTBURN / GAS; Start 09/26/19 at 16:00 Clonidine HCl (Catapres) 0.1 mg PRN Q6HRS PRN PO SBP>160 OR DBP>90; Start 09/26/19 at 16:00 Sodium Monofluorophosphate (Fleet Adult) 133 ml PRN DAILY PRN PA CONSTIPATION; Start 09/26/19 at 16:00 Docusate Sodium (Colace) 100 mg PRN BID PRN PO HARD STOOLS; Start 09/26/19 at 16:00 Albuterol/ Ipratropium (Duoneb) 3 ml Q4HRS NEB Last administered on 09/26/19at 20:44; Start 09/26/19 at 16:00; Stop 09/26/19 at 22:30; Status DC Guaifenesin (Robitussin) 200 mg PRN Q4HRS PRN PO COUGH; Start 09/26/19 at 16:00 Lorazepam (Ativan) 0.5 mg PRN Q4HRS PRN PO ANXIETY / AGITATION Last administered on 09/28/19at 15:21; Start 09/26/19 at 16:00 Lorazepam (Ativan Inj) 2 mg PRN Q4HRS PRN IV ANXIETY / AGITATION Last administered on 09/28/19at 05:08; Start 09/26/19 at 16:00 Enoxaparin Sodium (Lovenox 40mg Syringe) 40 mg Q24H SQ Last administered on 09/28/19at 15:22; Start 09/26/19 at 16:00 Multivitamins 10 ml/Thiamine HCl 100 mg/Folic Acid 1 mg/Sodium Chloride 1,011.2 ml @ 100 mls/ hr DAILY IV Last administered on 09/28/19at 08:17; Start 09/27/19 at 09:00; Stop 09/30/19 at 19:07 Multivitamins (Thera M Plus) 1 tab DAILY PO ; Start 10/01/19 at 09:00 Folic Acid (Folic Acid) 1 mg DAILY PO ; Start 10/01/19 at 09:00 Thiamine Mononitrate (Vitamin B-1) 100 mg DAILY PO ; Start 10/01/19 at 09:00 Lorazepam (Ativan) 4 mg PRN Q1HR PRN PO For CIWA 8-14; Start 09/26/19 at 16:15 Lorazepam (Ativan) 8 mg PRN Q1HR PRN PO For CIWA 15 or greater; Start 09/26/19 at 16:15 Lorazepam (Ativan Inj) 2 mg PRN Q1HR PRN IV For CIWA 8-14; Start 09/26/19 at 16:15 Lorazepam (Ativan Inj) 4 mg PRN Q1HR PRN IV For CIWA 15 or greater; Start 09/26/19 at 16:15 Haloperidol Lactate (Haldol Inj) 5 mg PRN Q4HRS PRN IVP Hallucinatns,Confusn,Delirium; Start 09/26/19 at 16:15 Diphenhydramine HCl (Benadryl) 25 mg PRN Q15MIN PRN IVP EPS symptoms 2'Haldol admin; Start 09/26/19 at 16:15 Clonidine HCl (Catapres) 0.1 mg PRN Q1HR PRN PO SBP > 180 or DBP > 100, MRX3; Start 09/26/19 at 16:15 Lorazepam (Ativan Inj) 2 mg PRN Q15MIN PRN IV SEE COMMENTS; Start 09/26/19 at 16:15 Lorazepam (Ativan Inj) 4 mg PRN Q15MIN PRN IV SEE COMMENTS; Start 09/26/19 at 16:15 Potassium Chloride (Klor-Con) 40 meq 1X ONCE PO Last administered on 09/26/19at 17:03; Start 09/26/19 at 16:15; Stop 09/26/19 at 16:23; Status DC Potassium Chloride (Klor-Con) 20 meq 1X ONCE PO Last administered on 09/26/19at 19:02; Start 09/26/19 at 18:15; Stop 09/26/19 at 18:16; Status DC Insulin Human Lispro (HumaLOG) 0-5 UNITS TIDWMEALS SQ ; Start 09/26/19 at 17:00 Dextrose (Dextrose 50%-Water Syringe) 12.5 gm PRN Q15MIN PRN IV SEE COMMENTS; Start 09/26/19 at 16:15 Pantoprazole Sodium (PROTONIX VIAL for IV PUSH) 40 mg DAILY08 IVP Last administered on 09/27/19at 08:19; Start 09/26/19 at 16:30; Stop 09/27/19 at 10:02; Status DC Hydromorphone HCl (Dilaudid) 1 mg PRN Q3HRS PRN IV PAIN Last administered on 09/26/19at 20:40; Start 09/26/19 at 20:15; Stop 09/26/19 at 22:46; Status DC Albuterol Sulfate (Ventolin Neb Soln) 2.5 mg PRN Q4HRS PRN NEB SHORTNESS OF BREATH; Start 09/26/19 at 22:45 Hydromorphone HCl (Dilaudid) 1.5 mg PRN Q3HRS PRN IV SEVERE PAIN 7-10 Last administered on 09/29/19at 08:31; Start 09/26/19 at 22:45 Hydromorphone HCl (Dilaudid) 0.5 mg 1X ONCE IV Last administered on 09/26/19at 22:59; Start 09/26/19 at 23:00; Stop 09/26/19 at 23:01; Status DC Pantoprazole Sodium (Protonix) 40 mg DAILYAC PO Last administered on 09/29/19at 08:31; Start 09/28/19 at 07:30 Ketorolac Tromethamine (Toradol 30mg Vial) 30 mg PRN Q6HRS PRN IVP PAIN Last administered on 09/28/19at 05:09; Start 09/27/19 at 13:45; Stop 10/02/19 at 13:44 Acetaminophen/ Hydrocodone Bitart (Lortab 5/325) 1 tab PRN Q6HRS PRN PO PAIN Last administered on 09/28/19at 19:47; Start 09/28/19 at 09:30 Ceftriaxone Sodium (Rocephin) 1 gm Q24H IVP Last administered on 09/28/19at 10:56; Start 09/28/19 at 09:30 Lidocaine (Lidoderm) 1 patch PRN DAILY PRN TD TOPICAL PAIN Last administered on 09/29/19at 00:03; Start 09/28/19 at 21:45 Zolpidem Tartrate (Ambien) 5 mg PRN QHS PRN PO INSOMNIA, MAY REPEAT X1 Last administered on 09/29/19at 00:03; Start 09/28/19 at 23:45 Active Scripts Active Reported Advil (Ibuprofen) 200 Mg Tablet 200 Mg PO PRN Q6HRS PRN One-Daily Multi-Vitamin (Multivitamin) 1 Each Tablet 1 Each PO DAILY Iron (Ferrous Sulfate) 325 Mg Tablet 325 Mg PO DAILY Vitals/I & O Vital Sign - Last 24 Hours 09/28/19 09/28/19 09/28/19 09/28/19 09:09 11:07 12:48 13:53 Temp 98.2 98.2 Pulse 78 Resp 18 16 16 B/P (MAP) 125/83 (97) Pulse Ox 97 O2 Delivery Room Air Room Air Room Air Room Air 09/28/19 09/28/19 09/28/19 09/28/19 14:03 14:36 15:39 18:06 Temp 98.1 98.1 Pulse 76 Resp 16 16 18 16 B/P (MAP) 128/81 (97) Pulse Ox 97 O2 Delivery Room Air Room Air Room Air Room Air 09/28/19 09/28/19 09/28/19 09/28/19 19:00 19:00 19:47 20:00 Temp 98.0 98.0 Pulse 82 Resp 18 B/P (MAP) 139/94 (109) Pulse Ox 97 98 97 O2 Delivery Room Air Room Air Room Air Room Air 09/28/19 09/28/19 09/28/19 09/29/19 20:53 21:28 22:00 00:43 Pulse Ox 97 97 97 97 O2 Delivery Room Air Room Air Room Air Room Air 09/29/19 09/29/19 09/29/19 09/29/19 01:13 03:00 04:57 05:30 Temp 98.1 98.1 Pulse 68 Resp 18 B/P (MAP) 128/84 (99) Pulse Ox 97 100 97 97 O2 Delivery Room Air Room Air Room Air Room Air 09/29/19 07:00 Temp 97.8 97.8 Pulse 17 Resp 17 B/P (MAP) 109/75 (86) Pulse Ox 100 O2 Delivery Room Air Intake and Output 09/28/19 09/28/19 09/29/19 14:59 22:59 06:59 Intake Total 650 ml 300 ml 100 ml Balance 650 ml 300 ml 100 ml Justicifation of Admission Dx: Justifications for Admission: Justification of Admission Dx: N/A ALAN OAKES MD Sep 29, 2019 08:40
[2019-09-29] MEDS ORDERED: SMZ/TMP 800/160MG TABLET. PO SCH ×2 (09:00→14:00)
[2019-09-29] MEDS: cefTRIAXone IV Push 1 GM VIAL. IVP SCH (09:30)
[2019-09-29] MEDS: MULTIVIT INFUSN,ADULT 4,VIT K 10 ML, THIAMINE INJ 100 MG, FOLIC ACID INJ 1 MG in IV NOR... IV SCH (10:10)
[2019-09-29] MEDS: KETOROLAC 30 MG/ML VIAL. IVP PRN (10:15)
[2019-09-29 10:51] VITALS: BP 112/72
--- NOTE | 2019-09-29 11:15 | PDOC ---
Subjective: Subjective: Doesn't know if she's better - pain after full liquids. Not forthcoming w/ history per usual. Objective: Objective: D/w nurse - found in parking lot overnight w/ boyfriend. Vital Signs: Vital Signs Date Time Temp Pulse Resp B/P (MAP) Pulse Ox O2 Delivery O2 Flow Rate FiO2 09/29/19 10:51 97.8 78 17 112/72 (85) 99 Room Air 97.8 Labs: Laboratory Tests Test 09/28/19 12:18 09/28/19 16:30 09/29/19 07:42 Glucose (Fingerstick) 112 mg/dL 131 mg/dL 113 mg/dL PE: GEN: NAD - full liquid tray mostly untouched - [employer] bag on tray, nurse present LUNGS: clear HEART: RRR ABD: soft, tenderness not impressive NEURO/PSYCH: A & O 3, flat A/P: Recurrent pancreatitis s/p toya UTI Substance abuse -- Reviewed w/ Dr. Bourne - will hold on repeating CT. Back to clear liquids. Don't eat [employer]. Justicifation of Admission Dx: Justifications for Admission: Justification of Admission Dx: N/A ALICIA EVANS Sep 29, 2019 11:15
--- NOTE | 2019-09-29 11:28 | NUR ---
SW following. Discussed with RN, pt on full liquid diet, was found in parking lot last night with boyfriend. Anticipate possible discharge home today with self care. SW will continue to follow.
[2019-09-29] MEDS ORDERED: SULF1TAB24 PO (13:22)
[2019-09-29] MEDS ORDERED: TRAM50TA PO (13:22)
[2019-09-29] MEDS ORDERED: Smz/Tmp 800/160MG PO (13:22)
--- NOTE | 2019-09-29 13:27 | PDOC3 ---
Discharge Summary Visit Information Date of Admission: Sep 26, 2019 Date of Discharge: Sep 29, 2019 Admitting Diagnosis: Pancreatitis Final Diagnosis Problems Medical Problems: (1) Pancreatitis Status: Acute Brief Hospital Course Allergies Allergies Coded Allergies Type Severity Reaction Last Updated Verified aspirin Allergy Intermediate 09/26/19 Yes Vital Signs Vital Signs Date Time Temp Pulse Resp B/P (MAP) Pulse Ox O2 Delivery O2 Flow Rate FiO2 09/29/19 12:19 100 Room Air 09/29/19 10:51 97.8 78 17 112/72 (85) 97.8 Lab Results Laboratory Tests Test 09/27/19 18:15 09/27/19 20:37 09/28/19 06:22 09/28/19 07:47 Glucose (Fingerstick) 102 mg/dL (70-99) 93 mg/dL (70-99) 120 mg/dL (70-99) White Blood Count 4.6 x10^3/uL (4.0-11.0) Red Blood Count 3.44 x10^6/uL (3.50-5.40) Hemoglobin 10.4 g/dL (12.0-15.5) Hematocrit 30.7 % (36.0-47.0) Mean Corpuscular Volume 89 fL (79-100) Mean Corpuscular Hemoglobin 30 pg (25-35) Mean Corpuscular Hemoglobin Concent 34 g/dL (31-37) Red Cell Distribution Width 17.6 % (11.5-14.5) Platelet Count 114 x10^3/uL (140-400) Test 09/28/19 12:18 09/28/19 16:30 09/29/19 07:42 Glucose (Fingerstick) 112 mg/dL (70-99) 131 mg/dL (70-99) 113 mg/dL (70-99) Laboratory Tests Test 09/28/19 16:30 09/29/19 07:42 Glucose (Fingerstick) 131 mg/dL (70-99) 113 mg/dL (70-99) Brief Hospital Course Ms Schmidt is a 28 year old female who presents with states epigastric abdominal pain 3 days that feels like " kicked in the stomach" with nausea and vomiting. PAIN wraps around to her bilateral flanks. Patient denies dizziness, chest pain, shortness of air, syncope, dysuria, v aginal discharge, headache, fever, diarrhea. She states that she used to be a heavy drinker but now drinks a 1/2 bottle of wine a day. She states in the past that she has had "pancreas issues". She rates her pain a 9 out of 10. She stopped eating on 09/24/2019 when she realized she was probably having pancreatitis. 09/26: Labs improved. advanced diet 721: Is asking for food today. Afebrile. Lipase normalized. Still with moderate 6 out of 10 abdominal pain radiating into the back. Afebrile. Urine returned with pansensitive E. coli. She left the hospital to go to her car earlier today. I discussed that due to her positive urine drug screen for cocaine that come back to the hospitals and appropriate and if she feels well enough to leave to her car she can continue her treatment outpatient and I have offered to call in her 3-day prescription for Bactrim for her UTI to her pharmacy. Consults: GI Problem list: Acute abdominal pain ALCOHOL ABUSE Acute pancreatitis. Prominent appearing common bile duct and the pancreatic duct likely postcholecystectomy changes or distal common bile duct obstruction not completely excluded. Consider follow-up MRCP. Mild thickened appearance of the wall of the sigmoid colon could be due to nondistention or mild colitis COCAINE ABUSE Plan: Discharge Discharge Information Condition at Discharge: Improved Follow Up: Weeks (1) Disposition/Orders: D/C to Home Scheduled Ferrous Sulfate (Iron) 325 Mg Tablet, 325 MG PO DAILY for supplement, (Reported) Entered as Reported by: JOE SANTIAGO on 09/26/191937 Last Action: New Order on 09/26/191937 by JOE SANTIAGO Multivitamin (One-Daily Multi-Vitamin) 1 Each Tablet, 1 EACH PO DAILY for supplement, (Reported) Entered as Reported by: JOE SANTIAGO on 09/26/191937 Last Action: New Order on 09/26/191937 by JOE SANTIAGO Sulfamethoxazole/Trimethoprim (Bactrim Ds Tablet) 1 Each Tablet, 1 TAB PO BID for UTI for 3 Days, #6 Ref 0 Prescribed by: ALAN OAKES MD on 09/29/19 1322 [Smz/Tmp 800/160MG] 1 TAB TABLET, 1 TAB PO BID for UTI for 3 Days, #6 Prescribed by: ALAN OAKES MD on 09/29/19 1322 Scheduled PRN Ibuprofen (Advil) 200 Mg Tablet, 200 MG PO PRN Q6HRS PRN for PAIN, (Reported) Entered as Reported by: JOE SANTIAGO on 09/26/191937 Last Action: New Order on 09/26/191937 by JOE SANTIAGO Tramadol Hcl (Tramadol Hcl) 50 Mg Tablet, 50 MG PO PRN Q6HRS PRN for PAIN for 5 Days, #16 Prescribed by: ALAN OAKES MD on 09/29/19 1323 Justicifation of Admission Dx: Justifications for Admission: Justification of Admission Dx: N/A ALAN OAKES MD Sep 29, 2019 13:26
[2019-09-29] MEDS: HYDROcodone/APAP 5/325MG 1 TAB TABLET PO PRN (13:57)
--- NOTE | 2019-09-29 16:01 | NUR ---
Discharge Note: JOSUE MICHEL Discharge instructions and discharge home medications reviewed with Patient and a copy given. All questions have been answered and understanding verbalized. The following instructions and handouts were given: Pancreatitis, Alcohol problems Discontinued lines and drains: Peripheral IV intact. Patient discharged to Home or Self Care with Friend via Ambulated
[2019-10-01] MEDS ORDERED: MULTIVITAMIN with MINERAL TABLET. PO SCH (09:00)
[2019-10-01] MEDS ORDERED: THIAMINE 100 MG TABLET. PO SCH (09:00)
[2019-10-01] MEDS ORDERED: FOLIC ACID 1 MG TABLET. PO SCH (09:00)
== END 2019-09-29 16:03 | disposition home or self-care (01) | DRG 438 ==
LOC: ER 12:38 → ED HOLD 14:33 → 4 NORTH 17:19 → 5 NORTH 09-28 12:01
PROVIDERS: ADMIT Family Medicine; ATTEND Family Medicine
DX: K85.90 Acute pancreatitis without necrosis or infection, unspecified (principal); K83.1 Obstruction of bile duct; N39.0 Urinary tract infection, site not specified; D61.818 Other pancytopenia; B96.20 Unspecified Escherichia coli [E. coli] as the cause of diseases classified elsewhere; K86.1 Other chronic pancreatitis; F14.10 Cocaine abuse, uncomplicated; F10.20 Alcohol dependence, uncomplicated; F17.210 Nicotine dependence, cigarettes, uncomplicated; K52.9 Noninfective gastroenteritis and colitis, unspecified; N20.0 Calculus of kidney; Z20.828 Contact with and (suspected) exposure to other viral communicable diseases; Z82.5 Family history of asthma and other chronic lower respiratory diseases; Z87.440 Personal history of urinary (tract) infections; Z90.49 Acquired absence of other specified parts of digestive tract
CPT/HCPCS: 36415; 74177; 80053; 80307; 81001; 81025; 82607; 82962; 83540; 83550; 83690; 85025; 85027; 85610; 87077; 87086; 94640; 96361; 96374; 96375; 99406; C9113; G0480; J0696; J1170; J1650; J1815; J1885; J2060; J2405; J3010; J3411; J3490; J7030; Q9967; 99285-25; G0378; U0003-CS